=== PATIENT | female | born 1960 | race Caucasian/White ===

== ENCOUNTER 2024-05-26 01:34 | Inpatient (IN) | payer SELFPAY ==
[2024-05-26] VITALS (30 sets, daily range): BP systolic 96–185; BP diastolic 60–107; PULSE 44–77; RESP 10–21; TEMP 36.6–37; O2SAT 84–99; BMI 32.6; BMI 38.3
--- NOTE | 2024-05-26 01:27 | ECG_ITS ---
APPROVED REPORT Exam: Resting ECG HR:54 bpm ECG Measurements Heart Rate 54 AXES WV 160 P 71 QRSd 131 QRS 148 QT 477 T 37 QTc 462 Conclusion SINUS BRADYCARDIA RIGHT AXIS DEVIATION [QRS AXIS > 100] RIGHT BUNDLE BRANCH BLOCK [120+ ms QRS DURATION, UPRIGHT V1, 40+ ms S IN I/aVL/V4/V5/V6] ANTEROSEPTAL MYOCARDIAL INFARCTION , OF INDETERMINATE AGE [40+ ms Q WAVE IN V1-V4] ABNORMAL ECG Low voltage ECG No STEMI Electronically signed by : RANDALL MORRELL, 05/26/2024 06:51:02
--- NOTE | 2024-05-26 01:32 | XR_ITS ---
PROCEDURE INFORMATION: Exam: XR Chest Exam date and time: 05/26/2024 2:16 AM Age: 63 years old Clinical indication: Pain; Chest pressure; Additional info: Cp TECHNIQUE: Imaging protocol: Radiologic exam of the chest. Views: 2 views. COMPARISON: No relevant prior studies available. FINDINGS: Lungs: Confluent and focal areas of airspace opacities in the lung bases with LEFT lower lobe atelectasis. Pleural spaces: Small bilateral pleural effusions. Heart/Mediastinum: Massive cardiomegaly. Bones/joints: Scoliosis and mild degenerative changes in the spine. IMPRESSION: 1. Massive cardiomegaly suggestive of pericardial effusion versus dilated cardiomyopathy. 2. Small bilateral pleural effusion with atelectasis and consolidation in the adjacent lung.
[2024-05-26] MEDS: NITROGLYCERIN 0.4MG SL TABLET 0.4 MG SL (01:43)
[2024-05-26 01:46] LABS: Eosinophils # 0.1 K/mm3 (0.0-0.4); Eosinophils % 2.2 % (0.1-12.0); Hematocrit 36.6 % (37.0-47.0); Hemoglobin 11.8 g/dL (12.2-16.2); Lymphocytes % 24.3 % (10-50); Mean Corpuscular HGB Conc 32.2 g/dL (31.8-35.4); Mean Corpuscular Hemoglobin 32.1 pg (27.0-31.2); Mean Corpuscular Volume 99.5 fl (81-99); Mean Platelet Volume 11.6 fl (7.4-10.4); Monocytes # 0.2 K/mm3 (0.1-1.0); Monocytes % 4.7 % (1.7-9.3); Neutrophils # 2.7 K/mm3 (1.8-7.8); Neutrophils % 67.6 % (37.0-80.0); Platelet Count 162 K/mm3 (142-424); Red Blood Count 3.68 M/mm3 (4.20-5.40); Red Cell Distribution Width 13.2 % (11.5-17.5)
[2024-05-26 01:46] LABS: Lactate Venous 1.2 mmol/L (0.4-2.0); VBG Base Excess 5.6 mmol/L (-2.4-2.3); VBG HCO3 30.1 mmol/L (23-30); VBG PCO2 47.3 mmol/L (35-51); VBG PH 7.42 mmol/L (7.31-7.41); VBG PO2 151.9 mmol/L (28-40); VBG Total CO2 31.5 mmol/L (23-27)
[2024-05-26 01:51] LABS: Chloride 96 mmol/L (98-107)
[2024-05-26 01:52] LABS: Potassium 3.8 mmoL/L (3.5-5.1); Sodium 137 mmol/L (136-145)
[2024-05-26 01:55] LABS: Alanine Aminotransferase 20 U/L (12-78); Albumin/Globulin Ratio 1.6 (1.1-1.8); Alkaline Phosphatase 44 U/L (38-126); Anion Gap 5.8 mEq/L (5-15); Aspartate Amino Transferase 43 U/L (14-36); Bilirubin,Total 0.5 mg/dl (0.2-1.3); Calcium 9.3 mg/dl (8.4-10.2); Carbon Dioxide 39 mmol/L (22.0-30.0); Globulin 3.2 g/dL (1.3-3.2); Glucose 141 mg/dl (74-100); Total Protein,Serum 8.2 g/dl (6.3-8.2)
[2024-05-26 01:57] LABS: Prothrombin Time 11.2 seconds (10.1-12.5)
[2024-05-26 02:04] LABS: NT Pro Brain Natriuretic Pep. 79.6 pg/mL (0-125)
[2024-05-26 02:07] LABS: Troponin I 0.02 ng/ml (0.00-0.034)
[2024-05-26 02:10] LABS: D-Dimer 0.61 ug/mL (0.0-0.5)
--- NOTE | 2024-05-26 02:21 | CT_ITS ---
PROCEDURE INFORMATION: Exam: CTA Chest With Contrast Exam date and time: 05/26/2024 2:37 AM Age: 63 years old Clinical indication: Pain; Chest pressure; Additional info: Cp hypoxia dimer elevated TECHNIQUE: Imaging protocol: Computed tomographic angiography of the chest with contrast. Exam focused on the arteries. 3D rendering (Not supervised by radiologist): MIP and/or 3D reconstructed images were created by the technologist. Radiation optimization: All CT scans at this facility use at least one of these dose optimization techniques: automated exposure control; mA and/or kV adjustment per patient size (includes targeted exams where dose is matched to clinical indication); or iterative reconstruction. Contrast material: ISOVUE; Contrast volume: 70 ml; Contrast route: INTRAVENOUS (IV); COMPARISON: CR XR CHEST 2V 05/26/2024 2:16 AM FINDINGS: Pulmonary arteries: Suboptimal study with likely streak artifact/artifactual filling defects in the distal pulmonary arteries due to patient's body habitus, artifact from patient's arms being in the scanning field and respiratory/cardiac motion. The main, right, and left pulmonary arteries and their visualized central branches show normal enhancement. Aorta: No thoracic aortic aneurysm or dissection. Lungs: See Pleural spaces finding. Pleural spaces: Small to moderate bilateral pleural effusion with adjacent compressive atelectasis. Dependent atelectasis in the lung bases, groundglass opacities, scarring and peribronchial thickening with marked narrowing of the distal airways. Also noted are a few scattered patchy airspace opacities. Heart: Normal heart size with massive pericardial effusion having attenuation of approximately 27 Hounsfield units and measuring approximately 6.3 cm at the level of the LEFT ventricle. Lymph nodes: No bulky mediastinal or hilar lymph node enlargement. Soft tissues: Mild wall thickening of the thoracic esophagus suggestive of esophagitis/reflux. Nonspecific LEFT perinephric fat stranding and trace fluid and small amount of perisplenic ascites. IMPRESSION: 1. Suboptimal study without evidence of acute central pulmonary thromboembolism. 2. Massive pericardial effusion and cardiac tamponade. 3. Findings also suspicious for CHF, pulmonary edema and pleural effusion. 4. A few scattered patchy airspace opacities suspicious for pneumonia. COMMENT: Suboptimal study due to extensive streak artifact from patient's arms within the scanning field and due to motion artifact. THIS REPORT CONTAINS FINDINGS THAT MAY BE CRITICAL TO PATIENT CARE. The findings were acknowledged to be understood at 5:08 AM EDT on 05/26/2024, by Kermit Oconnor
[2024-05-26 02:24] LABS: Blood Urea Nitrogen 13 mg/dl (7-17); Creatinine Clearance Estimated 91 mL/min (50-200); Estimated Glomerular Filt Rate 73 ml/min (>60); GFR (African American) 88 ML/MIN (>60)
--- NOTE | 2024-05-26 02:25 | PC.NURSE ---
Pt to CT via wheelchair
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
[2024-05-26] MEDS: 0.9 % SODIUM CHLORIDE 50 ML VIAL IV (02:47)
[2024-05-26] MEDS: IOPAMIDOL-370 (76%);100ML BOTTLE 70 ML IV (02:47)
[2024-05-26] MEDS: SODIUM CHLORIDE 0.9% 10ML SYR (RAD ONLY) 10 ML IV (02:47)
[2024-05-26 03:10] LABS: HIV Combo NEGATIVE (Negative)
[2024-05-26 03:18] LABS: Hepatitis C Ab Qual. W/ RFX NEGATIVE (Negative)
[2024-05-26 03:25] LABS: Activated Partial Thrombo Time 32.2 seconds (22.8-30.6)
--- NOTE | 2024-05-26 03:37 | PC.NURSE ---
report called to Kinga Alvarez RN
[2024-05-26 03:49] LABS: Free T4 (Free Thyroxine) < 0.07 ng/dl (0.78-2.19)
--- NOTE | 2024-05-26 04:16 | PC.NURSE ---
Patient arrived to ICU unit via wheelchair @04:16
--- NOTE | 2024-05-26 04:19 | P.HP_ITS ---
<Statement entered by Shaq Baker MD - 06/02/24 11:03> I personally examined patient and agree with the plan of care outlined by the HEALTH AND SAFETY TRAINER. History of Present Illness *Admission Date: 05/26/24 *Reason for visit:: Chest pain *History of present illness: This is a 63-year-old female who does not have any significant past medical history who presents with a chief complaint of chest pain and radiates to her jaw. It was, she presented to while in the emergency room, patient was noted to be 87% on room air. CTA of the chest showed a significant pericardial effusion leading to tamponade and patient was hypertensive. Due to these findings, patient's case was discussed with tapper balance wheel screw hole who recommended admission for potential pericardiocentesis. Due to these recommendations, patient has been admitted for further management. 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 She voices having no significant history and has not seen a doctor in over 10 years. Patient states that she was watching television when she started to experiencing a forementioned symptomology. Patient is normally independent of any supplemental oxygen and she does have a prior smoking history of 1 pack daily but she quit 10 years ago. Patient states she has been having swelling of the eyes. Patient voices she did receive 2 doses of the Moderna and post inoculation, patient states she started to lose her hair. She is currently denying any lightheadedness, dizziness, fever, chills, PND, nausea, vomiting, dyspnea, or diarrhea. Additional pertinent labs obtained including white blood cell count 4, red blood cell count 3.68, hemoglobin 11.8, hematocrit 36.6, D- dimer 0.61, PTT of 32.2, pH of 7.42, pCO2 of 31.5, bicarb of 30.1, chloride of 96, carbon oxide of 39, blood glucose 141, TSH is 69.80, and free T4 is less than 0.07, and AST of 43. [facility] Disclaimer: The information contained in this section may have been updated after the patient was seen, as this information can be updated by other users. Social History (Updated 05/26/24 @ 03:31 by Kermit Oconnor MD) Smoking Status: Unknown if ever smoked alcohol intake: never current occupational status: other Travel in the last 8 weeks: None Review of Systems Review of Systems Review of systems:: pertinent systems reviewed and negative unless documented below Constitutional Constitutional: Reports lethargy Eyes Comments: Swelling around the eyes ENT Comments: Thinning of the hair *Cardiovascular Cardiovascular: Reports chest pain and Reports dyspnea *Respiratory Respiratory: Reports dyspnea *Gastrointestinal Gastrointestinal: Reports system reviewed and no additional complaints, except as documented *Genitourinary Genitourinary: Reports system reviewed and no additional complaints, except as documented *Musculoskeletal Musculoskeletal: Reports system reviewed and no additional complaints, except as documented Integumentary/Breasts Skin/Breast: Reports system reviewed and no additional complaints, except as documented *Neurologic Neurologic: Reports system reviewed and no additional complaints, except as documented Psychiatric Psychiatric: Reports system reviewed and no additional complaints, except as documented Endocrine Endocrine: Reports system reviewed and no additional complaints, except as documented Hematologic/Lymphatic Hematologic/Lymphatic: Reports system reviewed and no additional complaints, except as documented Allergic/Immunologic Allergic/Immunologic: Reports system reviewed and no additional complaints, except as documented Meds Home Medications and Allergies Home Medications ?Medication ?Instructions ?Recorded ?Confirmed ?Type ascorbic acid (vitamin C) 500 mg 500 mg PO DAILY 05/26/24 05/26/24 History tablet (Vitamin C) cholecalciferol (vitamin D3) 10 10 mcg PO DAILY 05/26/24 05/26/24 History mcg (400 unit) tablet (Vitamin D3) cyanocobalamin-liver extract tablet 1 tab PO DAILY 05/26/24 05/26/24 History omega-3 fatty acids 1,000 mg PO DAILY 05/26/24 05/26/24 History New Prescriptions to Start Prescriptions: Allergies Allergy/AdvReac Type Severity Reaction Status Date / Time Penicillins Allergy Unknown Verified 05/26/24 01:43 allergy reaction tetanus and diphtheria Allergy Unknown Verified 05/26/24 01:43 toxoids allergy reaction Exam Data for Last 24 hours Vital signs and Labs for Last 24 Hours: Temp Pulse Resp BP Pulse Ox O2 Del Method O2 Flow Rate 98.0 F 50 L 17 166/90 H 99 Nasal Cannula 2 05/26/24 03:41 05/26/24 03:41 05/26/24 03:41 05/26/24 03:41 05/26/24 03:30 05/26/24 03:41 05/26/24 03:41 Laboratory Results - last 24 hr 05/26/24 01:32: VBG pH 7.42 H, VBG pCO2 47.3, VBG pO2 151.9 H, VBG HCO3 30.1 H, VBG Total CO2 31.5 H, VBG O2 Saturation 99.0 H, VBG Base Excess 5.6 H, VBG Lactic Acid 1.2 05/26/24 01:40: WBC 4.0 L, RBC 3.68 L, Hgb 11.8 L, Hct 36.6 L, MCV 99.5 H, MCH 32.1 H, MCHC 32.2, RDW 13.2, Plt Count 162, MPV 11.6 H, Neut % (Auto) 67.6, Lymph % (Auto) 24.3, [place] % (Auto) 4.7, Eos % (Auto) 2.2, Baso % (Auto) 1.0, Neut # (Auto) 2.7, Lymph # (Auto) 1.0, [place] # (Auto) 0.2, Eos # (Auto) 0.1, Baso # (Auto) 0.0, PT 11.2, INR 1.00, APTT 32.2 H, D-Dimer 0.61 H, Sodium 137, Potassium 3.8, Chloride 96 L, Carbon Dioxide 39 H, Anion Gap 5.8, BUN 13, Creatinine 0.80, Estimated Creat Clear 91, Estimated GFR 73, Est GFR ( Amer) 88, Glucose 141 H, Calcium 9.3, Total Bilirubin 0.5, AST 43 H, ALT 20, Alkaline Phosphatase 44, Troponin I 0.02, NT-Pro-B Natriuret Pep 79.6, Total Protein 8.2, Albumin 5.0, Globulin 3.2, Albumin/Globulin Ratio 1.6, TSH 69.80 H, Free T4 < 0.07 L, HCV Ab MELVIN w/Rflx PCR Qn Negative, HIV Ag/Ab Combo Qual Negative I & O for Last 24 hours: Intake & Output 05/23/24 05/24/24 05/25/24 05/26/24 23:59 23:59 23:59 23:59 Weight 97.522 kg Constitutional Constitutional: no acute distress and cooperative *Routine HEENT Exam Head: Present normocephalic Eye: Present EOMI, PERRL and periorbital swelling ENT: Present mucous membranes moist Comments: Hair thinning *Routine Neck Exam Neck: Present supple, full ROM and trachea midline *Routine Respiratory Exam Respiratory: Present decreased breath sounds and CTA bilaterally *Routine Cardiovascular Exam Cardiovascular: Present bradycardia Comments: Distant *Routine Abdominal Exam Abdominal: Present soft and normoactive bowel sounds *Routine Rectal Exam Rectal:: deferred *Routine Genitalia Exam Genitalia:: deferred *Routine Extremities Exam Extremities: Present pulses intact and normal capillary refill Routine Back/Spine/Pelvis Exam Back/Spine: Present full ROM *Routine Skin Exam Skin: Present dry and warm Comments: Thin *Routine Neurological Exam Neurological: Present alert, oriented X3, CN II-XII intact and normal speech Routine Psychiatric Exam Psychiatric: Present normal affect, normal thought process, cooperative, good insight and good judgment H&P: Result Impressions This is a 63-year-old has not seen a provider in over 10 years who presents with chest pain that radiates to her jaw found to have a significant pericardial effusion. TSH and T4 are both abnormal with concerns for myxedema patient has thin skin, periorbital edema, decreased exercise intolerance, and hair loss Assessment and Plan *Assessment and plan (1) Pericardial effusion: Status: Acute Category: Medical Code(s): I31.39 - Other pericardial effusion (noninflammatory) (2) Cardiac tamponade: Status: Acute Category: Medical Code(s): I31.4 - Cardiac tamponade (3) Hypoxia: Status: Acute Category: Medical Code(s): R09.02 - Hypoxemia (4) Hypothyroid: Status: Acute Qualifiers: Hypothyroidism type: unspecified Qualified Code(s): E03.9 - Hypothyroidism, unspecified Category: Medical Code(s): E03.9 - Hypothyroidism, unspecified (5) Hypertensive emergency: Status: Acute Category: Medical Code(s): I16.1 - Hypertensive emergency (6) Hyperglycemia: Status: Acute Category: Medical Code(s): R73.9 - Hyperglycemia, unspecified (7) Sinus bradycardia: Status: Acute Category: Medical Code(s): R00.1 - Bradycardia, unspecified (8) Chest pain: Status: Acute Qualifiers: Chest pain type: unspecified Qualified Code(s): R07.9 - Chest pain, unspecified Category: Medical Code(s): R07.9 - Chest pain, unspecified Plan Assessment: Pericardial effusion/cardiac tamponade -Put pericardial tray at the bedside per library helper recommendation -Will hope to culture fluid -Suspect that thyroid dysfunction may be the cause of patient's pericardial effusion -However, will rule out any autoimmune disorders we will obtain PETAR with reflex panel, lupus, and rheumatoid factor -echo Acute hypoxic respiratory failure -Supplemental oxygen to maintain oxygen saturation greater 94% Severe new onset hypothyroidism -Patient does have periorbital edema, thinning of skin, decreased activity, and loss of hair -Concern for myxedema -Called and spoke with pharmacy concerning dosing of levothyroxine IV -Recommended 50 mcg of levothyroxine IV daily -Will trend TSH, T4, and free T3 Hypertensive urgency -Will leave blood pressure high per library helper recommendation -Severe drop in blood pressure may lead to rapid deterioration of patient Hyperglycemia -No prior history of diabetes -Will obtain hemoglobin A1c Sinus bradycardia -Patient has stable blood pressure -Most likely in the setting of pericardial effusion Plan: Admit patient to the intensive care unit on telemetry Activity as tolerated Supplemental oxygen to maintain oxygen saturation greater than 92% Saline lock Vital signs every hour Consult cardiology Keep patient n.p.o. until evaluated by library helper CBC/BMP daily Lipid panel in a.m. Will trend troponins 40 mg Lovenox subcu daily for DVT prophylax 5 mg of hydrocodone p.o. every 6 hours as needed moderate pain 2 mg morphine IV push every 2 hours as needed severe pain 4 mg Zofran IV push every 6 hours as needed nausea vomiting Full code Discussed this case with attending physician Dr. Baker and I look forward to more input
--- NOTE | 2024-05-26 06:15 | CA_ITS ---
APPROVED REPORT EXAM: Comprehensive 2D, Doppler, and color-flow Echocardiogram Rn Compliance: Nolvia West, [facility], RVS Ht: 5 ft 7 in Wt: 253lbs BSA: 2.24 BP: 166/90 mmHg Rhythm: Bradycardia Indications: CP,Pericardial effusion, SOA, Acute Hypothyroidism, Bradycardia, Hgb=11.8 2D Dimensions IVSd 1.22 cm F: 0.6-1.0 LVEF (Visual) 62.70 % PWd 1.20 cm F: 0.6 - 1.0 EF AP4 52.30 % LVDd 3.82 cm F: 3.9 - 5.3 GL Strain -20.9 % LVDs 2.55 cm F: 2.2 - 3.5 Left Atrium 3.82 cm F: 2.7 - 3.8 M-Mode Dimensions LA Diam 4.31 cm (1.9-4.0) EPSs 0.46 cm TAPSE 1.49 (<1.7) LV Diastology E Decel Time 297 (160-240 msec) E/A Ratio 1.78 MED A' 6.20 cm/s LAT A' 7.60 cm/s Aortic Valve ABDIRIZAK Index 1.03 cm2/m2 AoV Peak Dago. 103.0 (50-130 cm/s) AO Peak GR. 4.20 mmHg AO Mean GR. 2.10 (<5 mmHg) AO VTI 20.9 (18-25 cm) ABDIRIZAK (VTI) 2.37 (2.5-4.5 cm2) Mitral Valve MV A Velocity 29.0 (40-130 cm/s) E/A Ratio 1.78 Left Ventricle The left ventricle is normal size. The left ventricular systolic function is normal. The left ventricular ejection fraction is within the normal range. There is increased LV wall thickness. There is normal LV segmental wall motion. Diastolic function is indeterminate. LVEF is 55% Right Ventricle The right ventricle is normal size. The right ventricular systolic function is normal. Atria Left atrium is mildly dilated. The right atrium size is normal. There is no Doppler evidence of interatrial shunt. Aortic Valve The aortic valve is mildly thickened. There is no aortic valvular stenosis. No aortic regurgitation is present. Mitral Valve The mitral valve leaflets are mildly thickened. No evidence of mitral valve stenosis. Trace mitral regurgitation. Tricuspid Valve Tricuspid valve is grossly normal in structure and function. Trace tricuspid regurgitation. There is insufficient TR jet to estimate RVSP. Pulmonic Valve The pulmonary valve is normal in structure. Trace pulmonic regurgitation. Great Vessels The aortic root is normal in size. IVC is normal in size and collapses >50% with inspiration. Pericardium There is a large sized, circumferential pericardial effusion present. The largest pocket measures 45 mm in diameter and is located posteriorly. No clear echo indications of tamponade. Other Information Study Quality: Fair Conclusion Normal biventricular systolic function. No significant valvular stenosis or regurgitation. Large sized, circumferential pericardial effusion present. The largest pocket measures 45 mm in diameter and is located posteriorly. No clear echo indications of tamponade. In the setting of large circumferential pericardial effusion, clinical correlation is required. Serial TTE is suggested. Electronically signed by : Danelle Ruiz MD 05/27/2024 12:59:38
[2024-05-26 06:32] LABS: Basophils % 0.9 % (0.1-2.0); Eosinophils # 0.1 K/mm3 (0.0-0.4); Eosinophils % 1.9 % (0.1-12.0); Hemoglobin 12.1 g/dL (12.2-16.2); Lymphocytes # 0.8 K/mm3 (0.7-4.5); Lymphocytes % 24.8 % (10-50); Mean Corpuscular HGB Conc 31.8 g/dL (31.8-35.4); Mean Corpuscular Hemoglobin 32.3 pg (27.0-31.2); Mean Corpuscular Volume 101.3 fl (81-99); Mean Platelet Volume 11.5 fl (7.4-10.4); Monocytes # 0.2 K/mm3 (0.1-1.0); Neutrophils # 2.1 K/mm3 (1.8-7.8); Neutrophils % 67.1 % (37.0-80.0); Platelet Count 169 K/mm3 (142-424); Red Blood Count 3.75 M/mm3 (4.20-5.40); Red Cell Distribution Width 13.2 % (11.5-17.5); White Blood Count 3.2 K/mm3 (4.8-10.8)
[2024-05-26 06:34] LABS: Blood Urea Nitrogen 11 mg/dl (7-17); Calcium 9.5 mg/dl (8.4-10.2); Chloride 95 mmol/L (98-107); Chol/HDL Ratio 5.4 (1-3.5); Cholesterol 295 mg/dl (140-200); Creatinine Clearance Estimated 107 mL/min (50-200); Estimated Glomerular Filt Rate 64 ml/min (>60); GFR (African American) 77 ML/MIN (>60); Glucose 112 mg/dl (74-100); HDL Cholesterol 55 mg/dl (40-60); Potassium 3.7 mmoL/L (3.5-5.1); Sodium 140 mmol/L (136-145); Triglycerides 179 mg/dl (30-150); VLDL Cholesterol 36 mg/dL (0-40)
[2024-05-26 06:41] LABS: Anion Gap 16.7 mEq/L (5-15); Carbon Dioxide 32 mmol/L (22.0-30.0)
[2024-05-26 06:44] LABS: Direct LDL Cholesterol 161.04 mg/dL (100-129)
[2024-05-26 06:47] LABS: Troponin I 0.49 ng/ml (0.00-0.034)
[2024-05-26 07:07] LABS: Free T4 (Free Thyroxine) < 0.07 ng/dl (0.78-2.19)
--- NOTE | 2024-05-26 07:48 | ECG_ITS ---
APPROVED REPORT Exam: Resting ECG HR:47 bpm ECG Measurements Heart Rate 47 AXES WI 181 P 67 QRSd 76 QRS 49 QT 184 T 0 QTc 145 Conclusion SINUS BRADYCARDIA LOW QRS VOLTAGE [QRS DEFLECTION < 0.5/1.0 mV IN LIMB/CHEST LEADS] ANTEROSEPTAL MYOCARDIAL INFARCTION , PROBABLY OLD [40+ ms Q WAVE IN V1-V4] TYPE 3 BRUGADA PATTERN (NON-DIAGNOSTIC) [COVED/SADDLEBACK ST ELEVATION > 0.1mV IN 2 OF V1-3] ABNORMAL ECG UNCONFIRMED REPORT Electronically signed by : Shaan Muse MD 05/26/2024 08:30:21
[2024-05-26 07:59] LABS: Magnesium 2.5 mg/dl (1.6-2.3)
--- NOTE | 2024-05-26 08:31 | PC.NURSE ---
per cardiology, do not start heparin drip
[2024-05-26 08:32] LABS: Anti-Centromere B Antibodies ND; Anti-DNA (DS) Ab Qn ND; Anti-Jo-1 ND; Antichromatin Antibodies ND; Antiscleroderma-70 Antibodies ND; RNP Antibodies ND; Sjogren's Anti-SS-A ND; Sjogren's Anti-SS-B ND
[2024-05-26 08:32] LABS: Adenovirus,PCR Not Detected (NotDetected); Bordetella Pertussis Not Detected (NotDetected); Chlamydophila Pneumoniae, PCR Not Detected (NotDetected); Coronavirus 19, PCR Not Detected (NotDetected); Coronavirus 229E Not Detected (NotDetected); Coronavirus NL63 Not Detected (NotDetected); Coronavirus OC43 Not Detected (NotDetected); Coronovirus HKU1,PCR Not Detected (NotDetected); Human Metapneumovirus Not Detected (NotDetected); Influenza A, PCR Not Detected (NotDetected); Influenza AH1, 2009 Not Detected (NotDetected); Influenza AH1, PCR Not Detected (NotDetected); Influenza AH3,PCR Not Detected (NotDetected); Influenza B, PCR Not Detected (NotDetected); Mycoplasma Pneumoniae, PCR Not Detected (NotDetected); Parainfluenza 1, PCR Not Detected (NotDetected); Parainfluenza 2, PCR Not Detected (NotDetected); Parainfluenza 3, PCR Not Detected (NotDetected); Parainfluenza 4, PCR Not Detected (NotDetected); Respiratory Syncytial Virus Not Detected (NotDetected); Rhinovirus/Enterovirus Not Detected (NotDetected)
[2024-05-26] MEDS: ASPIRIN 325MG TABLET 325 MG PO (08:44)
[2024-05-26] MEDS: LEVOTHYROXINE SODIUM 100 MCG VIAL 50 MCG IV (08:45)
[2024-05-26 08:49] LABS: PTT Heparin (inpatient only) 33.2 Seconds (50-75)
[2024-05-26 09:01] LABS: Erythrocyte Sedimentation Rate 20 mm/hr (0-30)
[2024-05-26 09:17] LABS: Troponin I 1.34 ng/ml (0.00-0.034)
--- NOTE | 2024-05-26 09:24 | P.CONCA_ITS ---
History of Present Illness History of Present Illness Consult date: 05/26/24 Requesting physician: Shaq Baker Consult reason: chest pain and shortness of breath Chief complaint: SOA, edema, chest pain Additional Medical History:: 1. Myxedema, 05/2024 A. TSH 69 B. Pericardial effusion, large without tamponade 2. Obesity History of present illness: 63 yo WF admitted through the ER for large pericardial effusion without cardiac tamponade. Pt relates recent increase in SOA with associated CP as the reason for ER visit. She hasn't seen a medical provider in 10 yrs. She takes no medication. Former smoker, stopped about 10 yrs ago. 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 No prior history of thyroid issues but TSH this admission elevated at 69. In light of edema and bradycardia, she likely has myxedema. She has been started on IV levothyroxine. Cardiology consulted for large pericardial effusion and possible need for pericardiocentesis. She is clinically stable with elevated BP at this time. HR is in the 50's. [facility] Disclaimer: The information contained in this section may have been updated after the patient was seen, as this information can be updated by other users. Family History (Updated 05/26/24 @ 05:21 by Alejandra Alvarez RN) Grandmother Family history of myocardial infarction Father Dementia Mother Diabetes Breast cancer Social History (Updated 05/26/24 @ 06:09 by Alejandra Alvarez RN) Smoking Status: Unknown if ever smoked alcohol intake: never current occupational status: other Travel in the last 8 weeks: None household members: spouse housing: house marital status: number of children: 1 number of grandchildren: 2 Contact w/someone who lives/traveled outside [place] past 30 days?: No Exposure to someone with infectious disease in past 14 days?: No Do you have a fever (greater than 100.4 F or 38 C)?: No Have you tested positive for COVID-19: No Exposed to someone with COVID-19 in past 14 days?: No Do you have a sore throat?: No Do you have a cough?: No Do you have any weakness?: No Are you experiencing any nausea/vomitting?: No Do you have any diarrhea?: No Are you experiencing any unusual bleeding?: No Do you have any muscle aches/pain?: No Do you have any abdominal pain?: No Are you experiencing loss of taste or smell?: No Review of Systems Review of Systems Review of systems:: pertinent systems reviewed and negative unless documented below *Cardiovascular Cardiovascular: Reports chest pain and Reports dyspnea *Respiratory Respiratory: Reports dyspnea *Neurologic Neurologic: Reports system reviewed and no additional complaints, except as documented Exam Data for Last 24 hours Vital signs and Labs for Last 24 Hours: Temp Pulse Resp BP Pulse Ox O2 Del Method O2 Flow Rate 98.6 F 53 L 12 174/91 H 95 Nasal Cannula 2 05/26/24 08:00 05/26/24 09:00 05/26/24 09:00 05/26/24 09:01 05/26/24 09:00 05/26/24 09:00 05/26/24 09:00 Laboratory Results - last 24 hr 05/26/24 01:32: VBG pH 7.42 H, VBG pCO2 47.3, VBG pO2 151.9 H, VBG HCO3 30.1 H, VBG Total CO2 31.5 H, VBG O2 Saturation 99.0 H, VBG Base Excess 5.6 H, VBG Lactic Acid 1.2 05/26/24 01:40: WBC 4.0 L, RBC 3.68 L, Hgb 11.8 L, Hct 36.6 L, MCV 99.5 H, MCH 32.1 H, MCHC 32.2, RDW 13.2, Plt Count 162, MPV 11.6 H, Neut % (Auto) 67.6, Lymph % (Auto) 24.3, [place] % (Auto) 4.7, Eos % (Auto) 2.2, Baso % (Auto) 1.0, Neut # (Auto) 2.7, Lymph # (Auto) 1.0, [place] # (Auto) 0.2, Eos # (Auto) 0.1, Baso # (Auto) 0.0, PT 11.2, INR 1.00, APTT 32.2 H, D-Dimer 0.61 H, Sodium 137, Potassium 3.8, Chloride 96 L, Carbon Dioxide 39 H, Anion Gap 5.8, BUN 13, Creatinine 0.80, Estimated Creat Clear 91, Estimated GFR 73, Est GFR ( Amer) 88, Glucose 141 H, Calcium 9.3, Total Bilirubin 0.5, AST 43 H, ALT 20, Alkaline Phosphatase 44, Troponin I 0.02, NT-Pro-B Natriuret Pep 79.6, Total Protein 8.2, Albumin 5.0, Globulin 3.2, Albumin/Globulin Ratio 1.6, TSH 69.80 H, Free T4 < 0.07 L, HCV Ab MELVIN w/Rflx PCR Qn Negative, HIV Ag/Ab Combo Qual Negative 05/26/24 05:41: WBC 3.2 L, RBC 3.75 L, Hgb 12.1 L, Hct 38.0, MCV 101.3 H, MCH 32 .3 H, MCHC 31.8, RDW 13.2, Plt Count 169, MPV 11.5 H, Neut % (Auto) 67.1, Lymph % (Auto) 24.8, [place] % (Auto) 5.0, Eos % (Auto) 1.9, Baso % (Auto) 0.9, Neut # (Auto) 2.1, Lymph # (Auto) 0.8, [place] # (Auto) 0.2, Eos # (Auto) 0.1, Baso # (Auto) 0.0, Sodium 140, Potassium 3.7, Chloride 95 L, Carbon Dioxide 32 H, Anion Gap 16.7 H, BUN 11, Creatinine 0.90, Estimated Creat Clear 107, Estimated GFR 64, Est GFR ( Amer) 77, Glucose 112 H D, Calcium 9.5, Magnesium 2.5 H, Troponin I 0.49 H, Triglycerides 179 H, Cholesterol 295 H, LDL Cholesterol Direct 161.04 H, VLDL Cholesterol 36, HDL Cholesterol 55, Cholesterol/HDL Ratio 5.4 H, TSH 57.10 H, Free T4 < 0.07 L 05/26/24 08:20: ESR 20, APTT 33.2 L, Troponin I 1.34 H I & O for Last 24 hours: Intake & Output 05/23/24 05/24/24 05/25/24 05/26/24 11:59 11:59 11:59 11:59 Output Total 700 / 700 Balance -700 / -700 Weight 253 lb 3.2 oz Constitutional Constitutional: no acute distress *Routine Respiratory Exam Respiratory: Present decreased breath sounds; Absent rhonchi or wheezes *Routine Cardiovascular Exam Cardiovascular: Present RRR and bradycardia Comments: Heart sounds are distant. *Routine Extremities Exam Extremities: Present edema *Routine Neurological Exam Neurological: Present alert, oriented X3 and CN II-XII intact Meds Home Medications and Allergies Home Medications ?Medication ?Instructions ?Recorded ?Confirmed ?Type ascorbic acid (vitamin C) 500 mg 500 mg PO DAILY 05/26/24 05/26/24 History tablet (Vitamin C) cholecalciferol (vitamin D3) 10 10 mcg PO DAILY 05/26/24 05/26/24 History mcg (400 unit) tablet (Vitamin D3) New Prescriptions to Start Prescriptions: Allergies Allergy/AdvReac Type Severity Reaction Status Date / Time Penicillins Allergy Unknown Verified 05/26/24 01:43 allergy reaction tetanus and diphtheria Allergy Unknown Verified 05/26/24 01:43 toxoids allergy reaction Assessment and Plan *Assessment and plan (1) Pericardial effusion: Status: Acute Category: Medical Code(s): I31.39 - Other pericardial effusion (noninflammatory) (2) Myxedema: Status: Acute Category: Medical Code(s): E03.9 - Hypothyroidism, unspecified (3) Obesity: Status: Acute Qualifiers: Body mass index: BMI 38.0-38.9 Obesity classification: adult class 2 (BMI 35 - 39.9) Obesity type: due to excess calories Serious obesity comorbidity presence: unspecified whether serious comorbidity present Qualified Code(s): E66.812 - Obesity, class 2; E66.09 - Other obesity due to excess calories; Z68.38 - Body mass index [BMI] 38.0-38.9, adult Category: Medical Code(s): E66.9 - Obesity, unspecified (4) Ex-smoker for more than 1 year: Status: Acute Category: Social Hx Code(s): Z87.891 - Personal history of nicotine dependence (5) HTN (hypertension): Status: Acute Qualifiers: Hypertension type: unspecified Qualified Code(s): I10 - Essential (primary) hypertension Category: Medical Code(s): I10 - Essential (primary) hypertension (6) Hypoxia: Status: Acute Category: Medical Code(s): R09.02 - Hypoxemia Plan 1. Pericardial effusion, large -no evidence of urgent findings on echo to necessitate pericardiocentesis at this time -likely related to myxedema -follow with limited echo daily while in hospital -colchicine for possible pericarditis 2. Myxedema -IV levothyroxine started 3. Hypertension -continue to follow with recent start of levothyroxine 4. Hypoxia -oxygen as needed 5. Hyperlipidemia -LDL 161 -start statin 6. Elevated troponin -likely related to effusion or possible pericarditis 7. Abnormal EKG -check echo -monitor as pericardial effusion resolves -concern for old VT and possible type 3 Brugada syndrome Start colchicine and statin daily echo to monitor pericardial effusion
[2024-05-26 09:52] LABS: C-Reactive Protein 4.8 mg/L (0-4)
[2024-05-26 10:08] LABS: Hemoglobin A1C 6.2 % (4.0-6.0)
[2024-05-26] MEDS: COLCHICINE 0.6MG TABLET 1.2 MG PO (14:41)
[2024-05-26 14:52] LABS: Troponin I 1.47 ng/ml (0.00-0.034)
--- NOTE | 2024-05-26 16:44 | PC.NURSE ---
VS stable, patient weaned to 1LNC but requiring 2LNC while sleeping. Patient alert and oriented. Heart rate 40-50's.
[2024-05-26] MEDS: ATORVASTATIN 40MG TABLET 80 MG PO (20:11)
[2024-05-27] VITALS (36 sets, daily range): BP systolic 116–166; BP diastolic 60–87; PULSE 44–70; RESP 9–20; TEMP 36.4–37.1; O2SAT 88–98; BMI 38.1
--- NOTE | 2024-05-27 00:04 | PC.NURSE ---
Pt dropped to 84% while asleep on 2 L nc. Pt titrated up to 4 L nc.
--- NOTE | 2024-05-27 06:00 | CA_ITS ---
APPROVED REPORT EXAM: Comprehensive 2D, Doppler, and color-flow Echocardiogram Appliance Worker: ORTEGA Carter, RVS Ht: 5 ft 7 in Wt: 253lbs BSA: 2.24 BP: 174/91 mmHg Rhythm: Bradycardia Indications: Persistant pericardial effusion , HTN, Ex-smoker, Acute hypothyroidism Other Information Study Quality: Fair Conclusion This is a limited TTE to evaluate for pericardial effusion. Limited windows were obtained. There is a large sized, circumferential pericardial effusion present. The largest pocket measures 53 mm in its largest dimension. There is no evidence of diastolic RV collapse. However, the RA free wall partially invaginates inward during systole. The IVC is normal in size and collapsibility. Compared to study from 1 day prior on 05/26/2024, the effusion size appears slightly larger. The RA invagination is new. Clinical correlation is suggested, with early consideration for pericardiocentesis if clinically feasible. The above findings were communicated with the inpatient cardiology consult team in real-time at the time of image acquisition. Electronically signed by : Danelle Ruiz MD 05/27/2024 13:02:32
[2024-05-27 06:09] LABS: Basophils % 0.9 % (0.1-2.0); Eosinophils # 0.1 K/mm3 (0.0-0.4); Eosinophils % 3.1 % (0.1-12.0); Hematocrit 35.4 % (37.0-47.0); Hemoglobin 11.1 g/dL (12.2-16.2); Lymphocytes # 1.1 K/mm3 (0.7-4.5); Lymphocytes % 30.9 % (10-50); Mean Corpuscular HGB Conc 31.4 g/dL (31.8-35.4); Mean Corpuscular Hemoglobin 31.9 pg (27.0-31.2); Mean Corpuscular Volume 101.7 fl (81-99); Mean Platelet Volume 11.5 fl (7.4-10.4); Monocytes # 0.2 K/mm3 (0.1-1.0); Neutrophils # 2.1 K/mm3 (1.8-7.8); Neutrophils % 58.8 % (37.0-80.0); Platelet Count 156 K/mm3 (142-424); Red Blood Count 3.48 M/mm3 (4.20-5.40); Red Cell Distribution Width 13.2 % (11.5-17.5); White Blood Count 3.5 K/mm3 (4.8-10.8)
[2024-05-27] MEDS: LEVOTHYROXINE SODIUM 100 MCG VIAL IV (06:11)
--- NOTE | 2024-05-27 06:35 | PC.NURSE ---
Pt a/o x4. Pt continued to require 4 L nc through the night while asleep. Pt on 2 L nc this AM tolerating well with sat mid 90s. Pt has been bradycardic with HR 40-60. Pt has not voiced any complaints to staff throughout shift. Pt receiving echo now. Call light within reach.
[2024-05-27 06:36] LABS: Blood Urea Nitrogen 14 mg/dl (7-17); Calcium 9.5 mg/dl (8.4-10.2); Chloride 94 mmol/L (98-107); Creatinine Clearance Estimated 106 mL/min (50-200); Estimated Glomerular Filt Rate 56 ml/min (>60); GFR (African American) 68 ML/MIN (>60); Glucose 98 mg/dl (74-100); Potassium 4.1 mmoL/L (3.5-5.1); Sodium 141 mmol/L (136-145)
[2024-05-27 06:44] LABS: Anion Gap 16.1 mEq/L (5-15); Carbon Dioxide 35 mmol/L (22.0-30.0)
[2024-05-27 07:32] LABS: Free T4 (Free Thyroxine) < 0.07 ng/dl (0.78-2.19)
--- NOTE | 2024-05-27 07:44 | US_ITS ---
FINAL REPORT TECHNIQUE: Sonographic images of the thyroid gland were obtained in the longitudinal and transverse planes. CLINICAL HISTORY: Severe hypothroidism FINDINGS: The right lobe measures 1.4 x 2.2 x 1.1 cm. The right lobe is diffusely heterogeneous. There are no cystic or solid nodules. The left lobe measures 1.6 x 2.0 x 1.0 cm. The left lobe is also heterogeneous. There is a densely calcified subcentimeter nodule with posterior shadowing. Otherwise, no concerning nodules are seen. The isthmus measures 2 mm. This is normal. IMPRESSION: Small, heterogeneous thyroid may represent thyroiditis. Calcified left thyroid nodule measuring less than 1 cm. No additional follow-up is needed. Reviewed, Interpreted and Dictated by Gerri Boothe MD Transcribed by Elva Loredo Authenticated and [facility]
[2024-05-27] MEDS: COLCHICINE 0.6MG TABLET 0.6 MG PO (08:47)
--- NOTE | 2024-05-27 09:31 | P.PN_ITS ---
Subjective Subjective Date: 05/27/24 Time: 09:31 Principal diagnosis: Pericardial effusion, myxedema Interval history: 63 yo WF in bed in NAD. Looks more alert today. No new complaints. BP is down to 119/62 mm Hg Prelim echo today is unchanged Exam Data for Last 24 hours Vital signs and Labs for Last 24 Hours: Temp Pulse Resp BP Pulse Ox O2 Del Method O2 Flow Rate 97.6 F 90 18 119/62 96 Nasal Cannula 2 05/27/24 08:01 05/27/24 08:01 05/27/24 08:01 05/27/24 08:01 05/27/24 08:01 05/27/24 08:01 05/27/24 08:01 Laboratory Results - last 24 hr 05/26/24 05:41: Hemoglobin A1c 6.2 H 05/26/24 08:05: Chlamy pneumoniae PCR Not detected, Adenovirus (PCR) Not detected, B. pertussis DNA (PCR) Not detected, Coronavirus OC43 (PCR) Not detected, Coronavirus HKU1 (PCR) Not detected, Coronavirus 229E (PCR) Not detected, SARS-CoV-2 (PCR) Not detected, Coronavirus NL63 (PCR) Not detected, Human Metapneumovir PCR Not detected, Influenza A (H1) PCR Not detected, Influ A (H1N1/09) PCR Not detected, Influenza A (H3) PCR Not detected, Influenza Type A (PCR) Not detected, Influenza Type B (PCR) Not detected, M. pneumoniae (PCR) Not detected, Parainfluenza 1 (PCR) Not detected, Parainfluenza 2 (PCR) Not detected, Parainfluenza 3 (PCR) Not detected, Parainfluenza 4 (PCR) Not detected, RSV (PCR) Not detected, Entero/Rhino (PCR) Not detected 05/26/24 08:20: C-Reactive Protein 4.8 H 05/26/24 14:00: Troponin I 1.47 H 05/27/24 05:25: WBC 3.5 L, RBC 3.48 L, Hgb 11.1 L, Hct 35.4 L, MCV 101.7 H, MCH 31.9 H, MCHC 31.4 L, RDW 13.2, Plt Count 156, MPV 11.5 H, Neut % (Auto) 58.8, Lymph % (Auto) 30.9, [place] % (Auto) 6.0, Eos % (Auto) 3.1, Baso % (Auto) 0.9, Neut # (Auto) 2.1, Lymph # (Auto) 1.1, [place] # (Auto) 0.2, Eos # (Auto) 0.1, Baso # (Auto) 0.0, Sodium 141, Potassium 4.1, Chloride 94 L, Carbon Dioxide 35 H, Anion Gap 16.1 H, BUN 14 D, Creatinine 1.00, Estimated Creat Clear 106, Estimated GFR 56 L, Est GFR ( Amer) 68, Glucose 98, Calcium 9.5, TSH 69.30 H, Free T4 < 0.07 L I & O for Last 24 hours: Intake & Output 05/24/24 05/25/24 05/26/24 05/27/24 11:59 11:59 11:59 11:59 Intake Total 840 / 840 Output Total 700 / 700 1000 / 1000 Balance -700 / -700 -160 / -160 Weight 253 lb 3.2 oz 251 lb 9.6 oz Constitutional Constitutional: no acute distress *Routine Respiratory Exam Respiratory: Present decreased breath sounds and CTA bilaterally *Routine Cardiovascular Exam Cardiovascular: Present RRR Progress Note: A&P Assessment and plan (1) Pericardial effusion: Status: Acute (2) Myxedema: Status: Acute (3) Obesity: Status: Acute (4) Ex-smoker for more than 1 year: Status: Acute (5) HTN (hypertension): Status: Acute (6) Hypoxia: Status: Acute Assessment and Plan Assessment and Plan for All Diagnoses:: 1. Pericardial effusion, large -echo today shows evidence that is worrisome for progression of the effusion and concern for cardiac tamponade -likely related to myxedema -follow with limited echo daily while in hospital -colchicine for possible pericarditis 2. Myxedema -IV levothyroxine started 3. Hypertension -continue to follow with recent start of levothyroxine 4. Hypoxia -oxygen as needed 5. Hyperlipidemia -LDL 161 -start statin 6. Elevated troponin -likely related to effusion or possible pericarditis 7. Abnormal EKG -check echo -monitor as pericardial effusion resolves -concern for old CO and possible type 3 Brugada syndrome Plan for pericardiocentesis today
[2024-05-27] MEDS: LORATADINE 10MG TABLET 10 MG PO (09:55)
[2024-05-27 11:24] LABS: Antinuclear Antibodies (ANA) Negative (Negative)
[2024-05-27 14:12] LABS: Triiodothyronine (T3) Free <0.3 pg/mL (2.0-4.4)
--- NOTE | 2024-05-27 14:57 | CA_ITS ---
APPROVED REPORT EXAM: Limited 2D Echocardiogram Basket Sorter: ORTEGA Carter, RVS Ht: 5 ft 7 in Wt: 253lbs BSA: 2.24 BP: 160/90 mmHg Indications: Post pericardiocentesis Other Information Study Quality: Fair Conclusion This is a limited TTE to evaluate for pericardial effusion during pericardiocentesis. Limited windows are obtained. In this study, postprocedure TTE images are obtained. There is a small sized, residual pericardial effusion present. The effusion is mostly noted posteriorly and measures approximately 8 mm in its largest dimension. Compared to prior study from 05/27/2024, the size of the pericardial effusion is significantly smaller. Serial TTE's are suggested to evaluate for further resolution of the pericardial effusion. The above findings were communicated with the inpatient cardiology consult team at the time of image acquisition. Electronically signed by : Danelle Ruiz MD 05/30/2024 21:40:41
--- NOTE | 2024-05-27 15:55 | IR_ITS ---
APPROVED REPORT Employee Operations Examiner: Procedure Pericardiocentesis Placement of pericardial pigtail drain into the pericardial space Indication for procedure Cardiac tamponade Pericardial effusion Informed consent was obtained prior to procedure Complications none Blood loss less than 10 cc Technique 1% lidocaine used anesthetize the subxiphoid area the patient had been sterilely prepped and adequately sedated. Pericardial needle was directed toward the pericardial effusion and under fluoroscopic guidance the needle was entered along with the addition of a J-wire. The dilator was used to dilate the track into the pericardial space and this was followed by placement of a pigtail pericardial drain. 2000 cc of serosanguineous fluid was removed from the pericardial space. Echocardiogram at the end of the procedure demonstrated complete resolution of the pericardial effusion. The pigtail catheter was sutured into place and a bag was placed to gravity drain at bedside. Impression Successful pericardiocentesis alleviating cardiac tamponade Plan [place] drain overnight Repeat echocardiogram in the morning Assess daily when the pigtail catheter should be dry and Continue treatment of myxedema Conclusion Electronically signed by : Carlos Hoyt MD 05/27/2024 17:51:21
[2024-05-27] MEDS: HEPARIN 1,000 UNITS/500ML NS (CATH LAB) 3000 UNIT IV (18:05)
[2024-05-27] MEDS: LIDOCAINE 1% 10ML MDV 20 ML IJ (18:06)
[2024-05-27] MEDS: MIDAZOLAM HCL 1MG/ML 5ML VIAL 1 MG IV (18:07)
[2024-05-27] MEDS: FENTANYL 100MCG/2ML VIAL 50 MCG IV (18:09)
[2024-05-27] MEDS: 0.9 % SODIUM CHLORIDE 500 ML 25 ML IV (18:10)
[2024-05-27] MEDS: ATORVASTATIN 40MG TABLET 80 MG PO (20:41)
--- NOTE | 2024-05-27 22:20 | EXP.PN ---
Subjective *Date: 05/27/24 *Time: 22:20 Interval history: Patient is very pleasant and states she feels great today. Continues to be edematous. Vital signs stable. Exam Data for Last 24 hours Vital signs and Labs for Last 24 Hours: Temp Pulse Resp BP Pulse Ox O2 Del Method O2 Flow Rate 98.3 F 66 15 141/75 H 94 L Nasal Cannula 4 05/27/24 18:15 05/27/24 22:15 05/27/24 19:45 05/27/24 22:15 05/27/24 22:15 05/27/24 22:17 05/27/24 22:17 Laboratory Results - last 24 hr 05/26/24 05:41: Free T3 <0.3 L 05/26/24 08:20: PETAR Screen Negative 05/27/24 05:25: WBC 3.5 L, RBC 3.48 L, Hgb 11.1 L, Hct 35.4 L, MCV 101.7 H, MCH 31.9 H, MCHC 31.4 L, RDW 13.2, Plt Count 156, MPV 11.5 H, Neut % (Auto) 58.8, Lymph % (Auto) 30.9, [place] % (Auto) 6.0, Eos % (Auto) 3.1, Baso % (Auto) 0.9, Neut # (Auto) 2.1, Lymph # (Auto) 1.1, [place] # (Auto) 0.2, Eos # (Auto) 0.1, Baso # (Auto) 0.0, Sodium 141, Potassium 4.1, Chloride 94 L, Carbon Dioxide 35 H, Anion Gap 16.1 H, BUN 14 D, Creatinine 1.00, Estimated Creat Clear 106, Estimated GFR 56 L, Est GFR ( Amer) 68, Glucose 98, Calcium 9.5, TSH 69.30 H, Free T4 < 0.07 L 05/27/24 15:05: Troponin I 0.80 H I & O for Last 24 hours: Intake & Output 05/24/24 05/25/24 05/26/24 05/27/24 23:59 23:59 23:59 23:59 Intake Total 420 / 420 780 / 780 Output Total 1700 / 1700 1350 / 1350 Balance -1280 / -1280 -570 / -570 Weight 114.8 kg 114.124 kg Constitutional Constitutional: no acute distress *Routine HEENT Exam Head: Present normocephalic Eye: Present EOMI and PERRL ENT: Present mucous membranes moist *Routine Neck Exam Neck: Present supple; Absent lymphadenopathy *Routine Respiratory Exam Respiratory: Present CTA bilaterally *Routine Cardiovascular Exam Cardiovascular: Present RRR *Routine Abdominal Exam Abdominal: Present soft and normoactive bowel sounds; Absent tenderness *Routine Extremities Exam Extremities: Present edema; Absent cyanosis or clubbing *Routine Skin Exam Skin: Present warm; Absent rash *Routine Neurological Exam Neurological: Present alert and oriented X3 Assessment and Plan *Assessment and plan (1) Myxedema: Status: Acute Category: Medical Code(s): E03.9 - Hypothyroidism, unspecified Plan Shaye Pederson is a 63-year-old female with no known past medical history who presents with chest pain and was admitted for significant pericardial effusion, myxedema, hypothyroidism. #Pericardial effusion #Severe hypothyroidism #Myxedema ? Patient has diffuse swelling, dry skin, and presented with significant pericardial effusion. No true tamponade physiology. Vital signs stable. ? Cardiology consulted, s/p pericardiocentesis 05/27/2024 with nearly 2 L output. Patient tolerated procedure well. ? Continue IV levothyroxine 100 mcg. ? Started oral liothyronine 25 mcg today. ? Continue colchicine per cardiology. ? Follow-up thyroid antibody studies. ? Follow-up thyroid ultrasound. #Allergic rhinitis ? Started loratadine. Full code DVT prophylaxis: Hold off on anticoagulation due to pericardial drain
[2024-05-28] VITALS (32 sets, daily range): BP systolic 100–144; BP diastolic 54–85; PULSE 50–66; RESP 7–19; TEMP 36.4–36.9; O2SAT 89–96; BMI 37.4
--- NOTE | 2024-05-28 | CA_ITS ---
APPROVED REPORT EXAM: Limited 2D Echocardiogram [employer] Programmer Analyst: Nolvia West, RCS, RVS Ht: 5 ft 7 in Wt: 246lbs BSA: 2.21 BP: 120/70 mmHg Indications: 17 hours post pericardial centesis, LVH, HTN, Acute hypothyroidism,SOAEx-smoker, Obesity Echo Enhancing Agent Comments: Persistant pericardial effusion M-Mode Dimensions RVDd 3.23 cm (0.9-2.6) LVDd 3.77 cm (3.5-5.7) LVDs 2.42 cm (3.5-5.7) IVSd 1.24 cm (0.6-1.1) PWd 1.67 cm (0.6-1.1) EF (Teich) 66.10% EPSs 0.70 cm FS 35.80% EDV (Teich) 60.80 mL ESV (Teich) 20.60 mL Other Information Study Quality: Fair Conclusion This is a limited TTE to evaluate for pericardial effusion in the setting of ongoing pericardial drainage. Limited windows are obtained. There is a moderate-sized, circumferential pericardial effusion present. The largest pocket is noted posteriorly and measures 16 mm in diastole. The anterior pocket is smaller in size and measures approximately 9 mm in diastole. No echo indications of tamponade. Compared to prior study pre-pericardiocentesis, the pericardial effusion size is significantly smaller. The above findings were communicated with the inpatient cardiology consult team in real-time at the time of image acquisition. Electronically signed by : Danelle Ruiz MD 05/30/2024 21:29:18
[2024-05-28 03:36] LABS: Thyroid Peroxidase Antibodies 193 IU/mL (0-34)
[2024-05-28 06:01] LABS: Basophils % 0.5 % (0.1-2.0); Eosinophils # 0.1 K/mm3 (0.0-0.4); Eosinophils % 1.7 % (0.1-12.0); Hematocrit 41.4 % (37.0-47.0); Lymphocytes # 0.8 K/mm3 (0.7-4.5); Lymphocytes % 12.7 % (10-50); Mean Corpuscular HGB Conc 31.4 g/dL (31.8-35.4); Mean Corpuscular Hemoglobin 31.9 pg (27.0-31.2); Mean Corpuscular Volume 101.5 fl (81-99); Mean Platelet Volume 11.5 fl (7.4-10.4); Monocytes # 0.3 K/mm3 (0.1-1.0); Monocytes % 5.1 % (1.7-9.3); Neutrophils # 5.1 K/mm3 (1.8-7.8); Neutrophils % 79.5 % (37.0-80.0); Platelet Count 172 K/mm3 (142-424); Red Blood Count 4.08 M/mm3 (4.20-5.40); Red Cell Distribution Width 13.2 % (11.5-17.5); White Blood Count 6.5 K/mm3 (4.8-10.8)
[2024-05-28 06:05] LABS: Blood Urea Nitrogen 13 mg/dl (7-17); Calcium 9.1 mg/dl (8.4-10.2); Chloride 93 mmol/L (98-107); Creatinine Clearance Estimated 104 mL/min (50-200); Estimated Glomerular Filt Rate 56 ml/min (>60); GFR (African American) 68 ML/MIN (>60); Glucose 118 mg/dl (74-100); Potassium 3.7 mmoL/L (3.5-5.1); Sodium 140 mmol/L (136-145)
[2024-05-28 06:12] LABS: Anion Gap 14.7 mEq/L (5-15); Carbon Dioxide 36 mmol/L (22.0-30.0)
[2024-05-28 06:28] LABS: Free T4 (Free Thyroxine) 0.11 ng/dl (0.78-2.19)
[2024-05-28] MEDS: LEVOTHYROXINE SODIUM 100 MCG VIAL IV (07:30)
[2024-05-28] MEDS: COLCHICINE 0.6MG TABLET 0.6 MG PO (08:59)
--- NOTE | 2024-05-28 13:03 | P.PN_ITS ---
Subjective Subjective Date: 05/28/24 Time: 13:03 Principal diagnosis: Pericardial effusion, myxedema Interval history: 63 yo WF in bed in NAD Pericardial drain in place with less than 100 mL since placement Echocardiogram today shows still with some fluid around the heart with recommendation to consider repositioning. No evidence of tamponade. Drain repositioned, additional 50-75 ml removed before fluid stopped, drain removed. Exam Data for Last 24 hours Vital signs and Labs for Last 24 Hours: Temp Pulse Resp BP Pulse Ox O2 Del Method O2 Flow Rate 97.6 F 60 16 137/71 92 L Nasal Cannula 4 05/28/24 12:00 05/28/24 12:00 05/28/24 12:00 05/28/24 12:00 05/28/24 12:00 05/28/24 12:00 05/28/24 12:00 Laboratory Results - last 24 hr 05/26/24 05:41: Free T3 <0.3 L 05/27/24 05:20: Thyroid Peroxidase Ab 193 H 05/27/24 15:05: Troponin I 0.80 H 05/28/24 05:31: WBC 6.5 D, RBC 4.08 L, Hgb 13.0, Hct 41.4, MCV 101.5 H, MCH 31.9 H, MCHC 31.4 L, RDW 13.2, Plt Count 172, MPV 11.5 H, Neut % (Auto) 79.5, Lymph % (Auto) 12.7, [place] % (Auto) 5.1, Eos % (Auto) 1.7, Baso % (Auto) 0.5, Neut # (Auto) 5.1, Lymph # (Auto) 0.8, [place] # (Auto) 0.3, Eos # (Auto) 0.1, Baso # (Auto) 0.0, Sodium 140, Potassium 3.7, Chloride 93 L, Carbon Dioxide 36 H, Anion Gap 14.7, BUN 13, Creatinine 1.00, Estimated Creat Clear 104, Estimated GFR 56 L, Est GFR ( Amer) 68, Glucose 118 H, Calcium 9.1, TSH 64.40 H, Free T4 0.11 L I & O for Last 24 hours: Intake & Output 05/26/24 05/27/24 05/28/24 05/29/24 11:59 11:59 11:59 11:59 Intake Total 840 / 840 630 / 630 Output Total 700 / 700 1000 / 1000 1950 / 1950 Balance -700 / -700 -160 / -160 -1320 / -1320 Weight 253 lb 3.2 oz 251 lb 9.6 oz 246 lb 14.684 oz Microbiology Reports for the Last 24 Hours: Microbiology 05/26/24 04:20 Anus CRE Surveillance Culture - Final Negative Constitutional Constitutional: no acute distress *Routine Respiratory Exam Respiratory: Present decreased breath sounds and crackles; Absent wheezes *Routine Cardiovascular Exam Cardiovascular: Present RRR; Absent murmur, gallop or rubs Progress Note: A&P Assessment and plan (1) Myxedema: Status: Acute (2) Pericardial effusion: Status: Acute (3) Obesity: Status: Acute (4) Ex-smoker for more than 1 year: Status: Acute (5) HTN (hypertension): Status: Acute (6) Hypoxia: Status: Acute Assessment and Plan Assessment and Plan for All Diagnoses:: 1. Pericardial effusion, large -pericardiocentesis with 2 liters of fluid removed on 05/27/2024 -likely related to myxedema -follow with limited echo daily while in hospital -colchicine for possible pericarditis 2. Myxedema -IV levothyroxine started -thyroid u/s shows small, heterogeneous thyroid may represent thyroiditis 3. History of Hypertension -continue to follow with recent start of levothyroxine 4. Hypoxia -oxygen as needed 5. Hyperlipidemia -LDL 161 -start statin 6. Elevated troponin -likely related to effusion or possible pericarditis 7. Abnormal EKG -echo EF 55% -monitor as pericardial effusion resolves -concern for old MS and possible type 3 Brugada syndrome (likely just related to pericardial effusion) Dr. Hoyt repositioned drain with additional fluid removed (<75 ml) and then drain removed. Continue IV levothroxine replacement per Hospitalist.
--- NOTE | 2024-05-28 14:22 | SUR.PHASEII ---
Called [facility] to order pericardial fluid chemistry per dr bustamante, stated he would get it order. Lab already has fluid, was waiting on orders.
--- NOTE | 2024-05-28 15:04 | PC.NURSE ---
Pericardial drain removed at bedside by provider. Pt tolerated well.
[2024-05-28 15:25] LABS: Appearance,Body Fld. Slightly cloudy; Source, Body Fld. Pericardial Fluid
[2024-05-28 15:40] LABS: TNC,Body Fluid 74 cells/uL (< 1000); Volume,Body Fld. 63 mL
[2024-05-28 15:41] LABS: RBC,Body Fluid 3 cells/uL (< 10 X 10^3)
--- NOTE | 2024-05-28 15:59 | P.PCN_ITS ---
[facility] Procedure Note Date: 05/28/24 Time: 15:00 Procedure Note:: Pericardial drain with 3 way stop cock was accessed with sterile syringe. Drain repositioned with additional serosanguinous fluid removed totaling less than 75 ml. The drain was subsequently removed and suture was cut and removed as well. Patient tolerated the procedure without complications. Dr. Hoyt performed the procedure.
[2024-05-28 16:54] LABS: Polynuclear WBC,Body Fluid 10 %
[2024-05-28 16:55] LABS: Mononuclear WBCs,Body Fluid 90 %
--- NOTE | 2024-05-28 17:57 | PC.NURSE ---
arrived by bed to floor
--- NOTE | 2024-05-28 18:38 | EXP.PN ---
Subjective *Date: 05/28/24 *Time: 18:38 Interval history: Patient doing well today, no acute complaints. Pericardial drain removed by Dr. Hoyt. Continues cardiac telemetry. Patient remained stable, will discharge in 1 to 2 days with close follow-up with cardiology. Exam Data for Last 24 hours Vital signs and Labs for Last 24 Hours: Temp Pulse Resp BP Pulse Ox O2 Del Method O2 Flow Rate 97.6 F 60 13 123/68 93 L Nasal Cannula 3 05/28/24 12:00 05/28/24 17:00 05/28/24 17:00 05/28/24 17:00 05/28/24 17:00 05/28/24 17:00 05/28/24 17:00 Laboratory Results - last 24 hr 05/27/24 05:20: Thyroid Peroxidase Ab 193 H 05/27/24 17:45: Fluid Source Pericardial fluid, Fluid Volume 63, Fluid Appearance Slightly cloudy, Fluid RBC (Auto) 3, Fld Tot Nucleated Cell 74, Fld Polynuclear WBCs % 10, Fld Mononuclear WBCs % 90 05/28/24 05:31: WBC 6.5 D, RBC 4.08 L, Hgb 13.0, Hct 41.4, MCV 101.5 H, MCH 31.9 H, MCHC 31.4 L, RDW 13.2, Plt Count 172, MPV 11.5 H, Neut % (Auto) 79.5, Lymph % (Auto) 12.7, [place] % (Auto) 5.1, Eos % (Auto) 1.7, Baso % (Auto) 0.5, Neut # (Auto) 5.1, Lymph # (Auto) 0.8, [place] # (Auto) 0.3, Eos # (Auto) 0.1, Baso # (Auto) 0.0, Sodium 140, Potassium 3.7, Chloride 93 L, Carbon Dioxide 36 H, Anion Gap 14.7, BUN 13, Creatinine 1.00, Estimated Creat Clear 104, Estimated GFR 56 L, Est GFR ( Amer) 68, Glucose 118 H, Calcium 9.1, TSH 64.40 H, Free T4 0.11 L I & O for Last 24 hours: Intake & Output 05/25/24 05/26/24 05/27/24 05/28/24 23:59 23:59 23:59 23:59 Intake Total 420 / 420 780 / 780 910 / 910 Output Total 1700 / 1700 1350 / 1350 990 / 990 Balance -1280 / -1280 -570 / -570 -80 / -80 Weight 114.8 kg 114.124 kg 112 kg Microbiology Reports for the Last 24 Hours: Microbiology 05/27/24 Unknown Pericardial Fluid Gram Stain - Final 05/26/24 04:20 Anus CRE Surveillance Culture - Final Negative Constitutional Constitutional: no acute distress *Routine HEENT Exam Head: Present normocephalic Eye: Present EOMI and PERRL ENT: Present mucous membranes moist *Routine Neck Exam Neck: Present supple; Absent lymphadenopathy *Routine Respiratory Exam Respiratory: Present CTA bilaterally *Routine Cardiovascular Exam Cardiovascular: Present RRR *Routine Abdominal Exam Abdominal: Present soft and normoactive bowel sounds; Absent tenderness *Routine Extremities Exam Extremities: Present edema; Absent cyanosis or clubbing *Routine Skin Exam Skin: Present warm; Absent rash *Routine Neurological Exam Neurological: Present alert and oriented X3 Assessment and Plan *Assessment and plan (1) Myxedema: Status: Acute Category: Medical Code(s): E03.9 - Hypothyroidism, unspecified Plan Shaye Pederson is a 63-year-old female with no known past medical history who presents with chest pain and was admitted for significant pericardial effusion, myxedema, hypothyroidism. #Pericardial effusion #Hypothyroidism #Myxedema #NSTEMI type II ? Patient has diffuse swelling, dry skin, and presented with significant pericardial effusion. No true tamponade physiology. Vital signs stable. ? Troponins peaked at 1.47, down trended to 0.80. EKG without acute ischemic changes. ? Cardiology consulted, s/p pericardiocentesis 05/27/2024 with nearly 2 L output. Patient tolerated procedure well. Pericardial drain had about 100 mL overnight, and an additional [address] Hoyt repositioned drain. Drain was subsequently removed by Dr. Hoyt. ? Continue IV levothyroxine 100 mcg. ? Continue oral liothyronine (T3) 25 mcg. ? Continue colchicine per cardiology for suspected pericarditis. ? Thyroid peroxidase antibodies positive. ? Thyroid ultrasound showed small heterogeneous thyroid which may represent thyroiditis, calcified left thyroid nodule measuring less than 1 cm. Additional follow-up was not suggested. ? Continuous cardiac telemetry. If patient remained stable, will consider discharge with close follow-up with cardiology within 1 to 2 days. #Allergic rhinitis ? Continue loratadine. Full code DVT prophylaxis: Lovenox 40 mg
[2024-05-28] MEDS: ATORVASTATIN 40MG TABLET 80 MG PO (20:06)
[2024-05-28] MEDS: NYSTATIN TOPICAL POWDER 30GM TP (20:07)
[2024-05-29] VITALS (10 sets, daily range): BP systolic 114–127; BP diastolic 62–75; PULSE 55–65; RESP 10–17; TEMP 36.3–37.2; O2SAT 92–98; BMI 31.4
[2024-05-29 07:02] LABS: Basophils % 0.3 % (0.1-2.0); Eosinophils # 0.1 K/mm3 (0.0-0.4); Eosinophils % 1.9 % (0.1-12.0); Hematocrit 44.1 % (37.0-47.0); Hemoglobin 13.7 g/dL (12.2-16.2); Mean Corpuscular HGB Conc 31.1 g/dL (31.8-35.4); Mean Corpuscular Hemoglobin 32.3 pg (27.0-31.2); Mean Platelet Volume 11.4 fl (7.4-10.4); Monocytes # 0.3 K/mm3 (0.1-1.0); Monocytes % 4.8 % (1.7-9.3); Neutrophils % 77.7 % (37.0-80.0); Platelet Count 168 K/mm3 (142-424); Red Blood Count 4.24 M/mm3 (4.20-5.40); Red Cell Distribution Width 13.4 % (11.5-17.5); White Blood Count 6.5 K/mm3 (4.8-10.8)
[2024-05-29 07:11] LABS: Chloride 95 mmol/L (98-107); Sodium 140 mmol/L (136-145)
[2024-05-29 07:14] LABS: Blood Urea Nitrogen 13 mg/dl (7-17); Creatinine Clearance Estimated 88 mL/min (50-200); Estimated Glomerular Filt Rate 56 ml/min (>60); GFR (African American) 68 ML/MIN (>60)
[2024-05-29 07:15] LABS: Calcium 9.1 mg/dl (8.4-10.2); Glucose 119 mg/dl (74-100)
[2024-05-29 07:21] LABS: Carbon Dioxide 36 mmol/L (22.0-30.0)
[2024-05-29] MEDS: COLCHICINE 0.6MG TABLET 0.6 MG PO (08:26)
[2024-05-29] MEDS: LORATADINE 10MG TABLET 10 MG PO (08:26)
[2024-05-29] MEDS: NYSTATIN TOPICAL POWDER 30GM TP ×2 (08:27→20:24)
[2024-05-29] MEDS: ENOXAPARIN 40MG/0.4ML SYRINGE 40 MG SUBCUT (08:30)
[2024-05-29] MEDS: LEVOTHYROXINE SODIUM 100 MCG VIAL 150 MCG IV (08:31)
[2024-05-29 08:33] LABS: Free T4 (Free Thyroxine) 0.16 ng/dl (0.78-2.19)
[2024-05-29 08:45] LABS: Triiodothyronine (T3) Free 0.4 pg/mL (2.0-4.4)
[2024-05-29] MEDS: FUROSEMIDE 40MG/4ML VIAL 40 MG IV (15:45)
--- NOTE | 2024-05-29 16:47 | HMH.PTEV ---
Physical Therapy Evaluation Rehab PT IP Evaluation Start: 05/29/24 10:15 Freq: ONCE Status: Active Protocol: Document 05/29/24 16:43 SAI (Rec: 05/29/24 16:47 PHOJORGE ALBERTO [id number]) Subjective/History History History 63-year-old female who does not have any significant past medical history who presents with a chief complaint of chest pain and radiates to her jaw. It was, she presented to while in the emergency room, patient was noted to be 87% on room air. CTA of the chest showed a significant pericardial effusion leading to tamponade and patient was hypertensive. Due to these findings, patient's case was discussed with highway worker who recommended admission for potential pericardiocentesis. Due to these recommendations, patient has been admitted for further management. Pt had pericardial drain removed but continues to need oxygen via NC. She reports she lives with her , 2-3 MANPREET the home , and she is generally independent with all mobility without AD at baseline. Subjective Subjective Pt reports feeling much better overall. Agrees to mobility assessment this pm. present during examination. New diagnosis of cancer in past 12 No months? [facility] How much help from another person do you currently need... Turning from your back to your side None while in a flat bed without using bedrails? Moving from lying on back to sitting on None the side of a flat bed without using bedrails? Moving to and from a bed to a chair ( None including a wheelchair)? Standing up from a chair using your arms None ? (e.g., wheelchair, bedside chair) Walking in hospital room? None Climbing 3-5 steps with a railing? None Mobility Score 24 Mobility Level [facility] Mobility Calculator Mobility 8 Walk 250 feet or more Rehab PT IP Eval Objective Appearance Patient Behavior Appropriate Patient Orientation Person,Place,Time Difficulty following instructions none Speech Pattern Clear Ambulation Patient Able to Ambulate Yes Ambulation Observation IP General Gait Pattern Observation No Deviations/Normal Ambulation Distance (feet) 50 Ambulation Assistive Device None Ambulation Ability Independent Balance Ability to Arise Able, uses arms to help Sitting Balance Steady, safe Standing Balance Steady, wide stance Dynamic Sitting Balance Ability Good Dynamic Standing Balance Ability Good Transfers Bed Transfer Ability Independent Chair Transfer Ability Independent Sit to Stand Bed Transfer Ability Independent Sit to Stand Chair Transfer Ability Independent Rehab PT IP prob,goals,plan Problems Date of Evaluation: 05/29/24 Discharge Plan PT Discharge Plan Pt is currently appropriate to return home once medically stable for d/c. No skilled acute therapy needs at this time. Eval Complexity Eval Charge Codes 11051 - High Complexity PHYSICIAN CERTIFICATION: I certify the specified therapy services for Shaye Pederson are required, authorized, and reviewed every 30 days.
[2024-05-29] MEDS: POLYETHYLENE GLYCOL 3350 17 GM PACKET PO (16:51)
--- NOTE | 2024-05-29 17:49 | PC.NURSE ---
Pt A&Ox4. Pt ambulating independently in room and was cleared by PT. Still requirring 4L NC and does not tolerate being weaned pt drops in the 80's on 2L NC. 2+ Pitting edema in extremities and under eyes. Pt resting in bed most of day. at bedside. Call light in reach.
[2024-05-29] MEDS: ATORVASTATIN 40MG TABLET 80 MG PO (20:22)
--- NOTE | 2024-05-29 21:56 | EXP.PN ---
Subjective *Date: 05/29/24 *Time: 21:56 Interval history: Patient is doing well today ambulating independently. Patient had desaturations to 76 on room air on walk test, requiring 4 L with exertion. CXR shows edema likely from myxedema, given IV Lasix 40 mg. Follow-up response. Exam Data for Last 24 hours Vital signs and Labs for Last 24 Hours: Temp Pulse Resp BP Pulse Ox O2 Del Method O2 Flow Rate 99.0 F 60 17 127/75 95 Room Air 4 05/29/24 19:54 05/29/24 20:00 05/29/24 19:54 05/29/24 19:54 05/29/24 19:54 05/29/24 21:00 05/29/24 20:00 Laboratory Results - last 24 hr 05/28/24 05:31: Free T3 0.4 L 05/29/24 06:35: WBC 6.5, RBC 4.24, Hgb 13.7, Hct 44.1, MCV 104.0 H, MCH 32.3 H, MCHC 31.1 L, RDW 13.4, Plt Count 168, MPV 11.4 H, Neut % (Auto) 77.7, Lymph % (Auto) 15.0, [place] % (Auto) 4.8, Eos % (Auto) 1.9, Baso % (Auto) 0.3, Neut # (Auto) 5.0, Lymph # (Auto) 1.0, [place] # (Auto) 0.3, Eos # (Auto) 0.1, Baso # (Auto) 0.0, Sodium 140, Potassium 4.0, Chloride 95 L, Carbon Dioxide 36 H, Anion Gap 13.0, BUN 13, Creatinine 1.00, Estimated Creat Clear 88, Estimated GFR 56 L, Est GFR ( Amer) 68, Glucose 119 H, Calcium 9.1, TSH 64.60 H, Free T4 0.16 L I & O for Last 24 hours: Intake & Output 05/26/24 05/27/24 05/28/24 05/29/24 23:59 23:59 23:59 23:59 Intake Total 420 / 420 780 / 780 910 / 940 745 / 745 Output Total 1700 / 1700 1350 / 1350 990 / 990 0 / 0 Balance -1280 / -1280 -570 / -570 -80 / -50 745 / 745 Weight 114.8 kg 114.124 kg 112 kg 93.894 kg Microbiology Reports for the Last 24 Hours: Microbiology 05/27/24 Unknown Pericardial Fluid Gram Stain - Final 05/27/24 Unknown Pericardial Fluid Body Fluid Culture - Preliminary NO GROWTH AFTER 24 HOURS Constitutional Constitutional: no acute distress *Routine HEENT Exam Head: Present normocephalic Eye: Present EOMI and PERRL ENT: Present mucous membranes moist *Routine Neck Exam Neck: Present supple; Absent lymphadenopathy *Routine Respiratory Exam Respiratory: Present CTA bilaterally *Routine Cardiovascular Exam Cardiovascular: Present RRR *Routine Abdominal Exam Abdominal: Present soft and normoactive bowel sounds; Absent tenderness *Routine Extremities Exam Extremities: Present edema; Absent cyanosis or clubbing *Routine Skin Exam Skin: Present warm; Absent rash *Routine Neurological Exam Neurological: Present alert and oriented X3 Assessment and Plan *Assessment and plan (1) Myxedema: Status: Acute Category: Medical Code(s): E03.9 - Hypothyroidism, unspecified Plan Shaye Pederson is a 63-year-old female with no known past medical history who presents with chest pain and was admitted for significant pericardial effusion, myxedema, hypothyroidism. #Pericardial effusion #Hypothyroidism #Myxedema #NSTEMI type II #Acute hypoxic respiratory failure ? Patient has diffuse swelling, dry skin, and presented with significant pericardial effusion. No true tamponade physiology. Vital signs stable. ? Troponins peaked at 1.47, down trended to 0.80. EKG without acute ischemic changes. ? Cardiology consulted, s/p pericardiocentesis 05/27/2024 with nearly 2 L output. Patient tolerated procedure well. Pericardial drain had about 100 mL overnight, and an additional [address] Hoyt repositioned drain. Drain was subsequently removed by Dr. Hoyt. ? Increased IV levothyroxine 150 mcg. ? Continue oral liothyronine (T3) 25 mcg day 2/3 ? Continue colchicine per cardiology for suspected pericarditis. ? Thyroid peroxidase antibodies positive. ? Thyroid ultrasound showed small heterogeneous thyroid which may represent thyroiditis, calcified left thyroid nodule measuring less than 1 cm. Additional follow-up was not suggested. ? Patient had desaturations to 76 on room air on walk test, requiring 4 L with exertion. CXR shows edema likely from myxedema, given IV Lasix 40 mg. Follow-up response. ? Continuous cardiac telemetry. If patient remained stable, will consider discharge with close follow-up with cardiology within 1 to 2 days. #Allergic rhinitis ? Continue loratadine. Full code DVT prophylaxis: Lovenox 40 mg
[2024-05-30] VITALS (7 sets, daily range): BP systolic 114–147; BP diastolic 63–71; PULSE 60–71; RESP 15–18; TEMP 36.4–37; O2SAT 55–96; BMI 31.4
[2024-05-30 05:51] LABS: Basophils % 0.6 % (0.1-2.0); Eosinophils # 0.2 K/mm3 (0.0-0.4); Eosinophils % 2.3 % (0.1-12.0); Hematocrit 41.2 % (37.0-47.0); Lymphocytes % 14.1 % (10-50); Mean Corpuscular HGB Conc 31.6 g/dL (31.8-35.4); Mean Corpuscular Hemoglobin 32.7 pg (27.0-31.2); Mean Corpuscular Volume 103.8 fl (81-99); Mean Platelet Volume 11.2 fl (7.4-10.4); Monocytes # 0.4 K/mm3 (0.1-1.0); Monocytes % 5.5 % (1.7-9.3); Neutrophils # 5.4 K/mm3 (1.8-7.8); Neutrophils % 77.2 % (37.0-80.0); Platelet Count 168 K/mm3 (142-424); Red Blood Count 3.97 M/mm3 (4.20-5.40); Red Cell Distribution Width 13.3 % (11.5-17.5); White Blood Count 6.9 K/mm3 (4.8-10.8)
[2024-05-30 05:56] LABS: Chloride 93 mmol/L (98-107); Potassium 3.8 mmoL/L (3.5-5.1); Sodium 141 mmol/L (136-145)
[2024-05-30 05:59] LABS: Blood Urea Nitrogen 14 mg/dl (7-17); Creatinine Clearance Estimated 88 mL/min (50-200); Estimated Glomerular Filt Rate 56 ml/min (>60); GFR (African American) 68 ML/MIN (>60)
[2024-05-30 06:00] LABS: Calcium 9.1 mg/dl (8.4-10.2); Glucose 100 mg/dl (74-100)
[2024-05-30 06:06] LABS: Anion Gap 11.8 mEq/L (5-15); Carbon Dioxide 40 mmol/L (22.0-30.0)
--- NOTE | 2024-05-30 06:13 | PC.NURSE ---
patient had increased oxygen requirements t/o shift, increased to 5L NC. desatted to 55% at one point with frequent desats in the 70's with sleep and ambulation. patient takes roughly a minute to recover to 90% once woken. SEE Vital Signs. unable to attempt to wean O2
[2024-05-30 06:27] LABS: Free T4 (Free Thyroxine) 0.22 ng/dl (0.78-2.19)
[2024-05-30] MEDS: FUROSEMIDE 40MG/4ML VIAL 40 MG IV (09:03)
[2024-05-30] MEDS: ENOXAPARIN 40MG/0.4ML SYRINGE 40 MG SUBCUT (09:03)
[2024-05-30] MEDS: LEVOTHYROXINE SODIUM 100 MCG VIAL 150 MCG IV (09:06)
[2024-05-30] MEDS: LORATADINE 10MG TABLET 10 MG PO (09:06)
[2024-05-30] MEDS: NYSTATIN TOPICAL POWDER 30GM TP (09:07)
[2024-05-30] MEDS: POLYETHYLENE GLYCOL 3350 17 GM PACKET PO (09:07)
[2024-05-30] MEDS: COLCHICINE 0.6MG TABLET 0.6 MG PO (09:10)
[2024-05-30 10:06] LABS: Chol/HDL Ratio 5.8 (1-3.5); Cholesterol 267 mg/dl (140-200); HDL Cholesterol 46 mg/dl (40-60); Triglycerides 174 mg/dl (30-150); VLDL Cholesterol 35 mg/dL (0-40)
[2024-05-30 10:17] LABS: Direct LDL Cholesterol 158.03 mg/dL (100-129)
--- NOTE | 2024-05-30 12:21 | P.DS_ITS ---
General Admission date:: 05/26/24 HPI HPI HPI: This is a 63-year-old female who does not have any significant past medical history who presents with a chief complaint of chest pain and radiates to her jaw. It was, she presented to while in the emergency room, patient was noted to be 87% on room air. CTA of the chest showed a significant pericardial effusion leading to tamponade and patient was hypertensive. Due to these findings, patient's case was discussed with market editor who recommended admission for potential pericardiocentesis. Due to these recommendations, patient has been admitted for further management. 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 She voices having no significant history and has not seen a doctor in over 10 years. Patient states that she was watching television when she started to experiencing a forementioned symptomology. Patient is normally independent of any supplemental oxygen and she does have a prior smoking history of 1 pack daily but she quit 10 years ago. Patient states she has been having swelling of the eyes. Patient voices she did receive 2 doses of the Moderna and post inoculation, patient states she started to lose her hair. She is currently denying any lightheadedness, dizziness, fever, chills, PND, nausea, vomiting, dyspnea, or diarrhea. Additional pertinent labs obtained including white blood cell count 4, red blood cell count 3.68, hemoglobin 11.8, hematocrit 36.6, D- dimer 0.61, PTT of 32.2, pH of 7.42, pCO2 of 31.5, bicarb of 30.1, chloride of 96, carbon oxide of 39, blood glucose 141, TSH is 69.80, and free T4 is less than 0.07, and AST of 43. Hospital Course Hospital Course Hospital Course: Shaye Pederson is a 63-year-old female with no known past medical history who presents with chest pain and was admitted for significant pericardial effusion, myxedema, hypothyroidism. #Pericardial effusion #Hypothyroidism #Myxedema #NSTEMI type II #Acute hypoxic respiratory failure ? Patient has diffuse swelling, dry skin, fatigue, and presented with significant pericardial effusion. No true tamponade physiology. Vital signs stable. ? Thyroid peroxidase antibodies positive. Thyroid ultrasound showed small heterogeneous thyroid which may represent thyroiditis, calcified left thyroid nodule measuring less than 1 cm. Additional follow-up was not suggested. ? Troponins peaked at 1.47, down trended to 0.80. EKG without acute ischemic changes. ? Cardiology consulted, s/p pericardiocentesis 05/27/2024 with nearly 2 L serosanguineous output. Patient tolerated procedure well. Pericardial drain had an additional 150 mL. Drain was subsequently removed by Dr. Hoyt. ? Treated with IV levothyroxine 125, then 150 mcg, oral liothyronine (T3) 25 mcg daily. Transitioned to oral levothyroxine 125 mcg. ? Continue colchicine per cardiology 0.6 mg for suspected pericarditis. ? Patient requiring 2 L nasal cannula due to myxedema, saturating 84% on room air at rest. ? Advised to follow-up with cardiology within 2 weeks. #Hyperlipidemia ? LDL 161, likely related to hypothyroidism. ? Start atorvastatin 80 mg nightly. #Allergic rhinitis ? Continue home regimen. Total time spent on discharge: 32 minutes on chart review, counseling, documentation, and direct care with patient. Exam Data for Last 24 hours Vital signs and Labs for Last 24 Hours: Temp Pulse Resp BP Pulse Ox O2 Del Method O2 Flow Rate 98.2 F 63 18 124/70 92 L Nasal Cannula 2 05/30/24 11:45 05/30/24 11:45 05/30/24 11:45 05/30/24 11:45 05/30/24 11:45 05/30/24 11:45 05/30/24 11:45 Laboratory Results - last 24 hr 05/30/24 05:38: WBC 6.9, RBC 3.97 L, Hgb 13.0, Hct 41.2, MCV 103.8 H, MCH 32.7 H , MCHC 31.6 L, RDW 13.3, Plt Count 168, MPV 11.2 H, Neut % (Auto) 77.2, Lymph % (Auto) 14.1, [place]cculloch % (Auto) 5.5, Eos % (Auto) 2.3, Baso % (Auto) 0.6, Neut # (Auto) 5.4, Lymph # (Auto) 1.0, [place]och # (Auto) 0.4, Eos # (Auto) 0.2, Baso # (Auto) 0.0, Sodium 141, Potassium 3.8, Chloride 93 L, Carbon Dioxide 40 H, Anion Gap 11.8, BUN 14, Creatinine 1.00, Estimated Creat Clear 88, Estimated GFR 56 L, Est GFR ( Amer) 68, Glucose 100, Calcium 9.1, Triglycerides 174 H, Cholesterol 267 H, LDL Cholesterol Direct 158.03 H, VLDL Cholesterol 35, HDL Cholesterol 46, Cholesterol/HDL Ratio 5.8 H, TSH 45.60 H D, Free T4 0.22 L I & O for Last 24 hours: Intake & Output 05/27/24 05/28/24 05/29/24 05/30/24 23:59 23:59 23:59 23:59 Intake Total 780 / 780 910 / 940 745 / 865 360 / 360 Output Total 1350 / 1350 990 / 990 0 / 0 0 / 0 Balance -570 / -570 -80 / -50 745 / 865 360 / 360 Weight 114.124 kg 112 kg 93.894 kg 94 kg Microbiology Reports for the Last 24 Hours: Microbiology 05/27/24 Unknown Pericardial Fluid Gram Stain - Final 05/27/24 Unknown Pericardial Fluid Body Fluid Culture - Preliminary NO GROWTH AFTER 24 HOURS Constitutional Constitutional: no acute distress *Routine HEENT Exam Head: Present normocephalic Eye: Present EOMI and PERRL ENT: Present mucous membranes moist *Routine Neck Exam Neck: Present supple; Absent lymphadenopathy *Routine Respiratory Exam Respiratory: Present CTA bilaterally *Routine Cardiovascular Exam Cardiovascular: Present RRR *Routine Abdominal Exam Abdominal: Present soft and normoactive bowel sounds; Absent tenderness *Routine Extremities Exam Extremities: Present edema; Absent cyanosis or clubbing *Routine Skin Exam Skin: Present warm; Absent rash *Routine Neurological Exam Neurological: Present alert and oriented X3 Results Data Completed and Pending Labs on day of discharge: Labs from last 24 hours 05/30/24 05:38 WBC 6.9 RBC 3.97 L Hgb 13.0 Hct 41.2 MCV 103.8 H MCH 32.7 H MCHC 31.6 L RDW 13.3 Plt Count 168 MPV 11.2 H Neut % (Auto) 77.2 Lymph % (Auto) 14.1 [place]ulloch % (Auto) 5.5 Eos % (Auto) 2.3 Baso % (Auto) 0.6 Neut # (Auto) 5.4 Lymph # (Auto) 1.0 [place]och # (Auto) 0.4 Eos # (Auto) 0.2 Baso # (Auto) 0.0 Sodium 141 Potassium 3.8 Chloride 93 L Carbon Dioxide 40 H Anion Gap 11.8 BUN 14 Creatinine 1.00 Estimated Creat Clear 88 Estimated GFR 56 L Est GFR ( Amer) 68 Glucose 100 Calcium 9.1 Triglycerides 174 H Cholesterol 267 H LDL Cholesterol Direct 158.03 H VLDL Cholesterol 35 HDL Cholesterol 46 Cholesterol/HDL Ratio 5.8 H TSH 45.60 H D Free T4 0.22 L Preliminary micro results at discharge 05/27/24 Unknown Body Fluid Culture - Preliminary Pericardial Fluid NO GROWTH AFTER 24 HOURS DS: Diagnosis Discharge Diagnosis (1) Myxedema: Status: Acute Code(s): E03.9 - Hypothyroidism, unspecified Meds Home Medications and Allergies Home Medications ?Medication ?Instructions ?Recorded ?Confirmed ?Type ascorbic acid (vitamin C) 500 mg 500 mg PO DAILY 05/26/24 05/26/24 History tablet (Vitamin C) cholecalciferol (vitamin D3) 10 10 mcg PO DAILY 05/26/24 05/26/24 History mcg (400 unit) tablet (Vitamin D3) atorvastatin 40 mg tablet 80 mg (2 x 40 mg) PO HS 30 days 05/30/24 Rx #60 tabs colchicine 0.6 mg tablet (Colcrys) 0.6 mg PO DAILY 30 days #30 tabs 05/30/24 Rx levothyroxine 150 mcg capsule 150 mcg PO DAILY #30 caps 05/30/24 Rx New Prescriptions to Start Prescriptions: Shaq Rodriguez colchicine [Colcrys] Shaq Baker levothyroxine Shaq Baker Allergies Allergy/AdvReac Type Severity Reaction Status Date / Time Penicillins Allergy Unknown Verified 05/26/24 01:43 allergy reaction tetanus and diphtheria Allergy Unknown Verified 05/26/24 01:43 toxoids allergy reaction Discharge Plan Disposition Patient Disposition: Home, Self-Care Condition: Fair Discharge Order Discharge Orders: Discharge Order (Routine); Ordered 05/30/24 Ordered By: Shaq Baker Follow up Plan Follow up with: Warren Narvaez PA [Physician Insurance Risk Analyst] - 06/07/24 (please call for appointment) Provider,Rebeca, [Primary Care Provider] - 06/07/24 Prescriptions/Medication Reconciliation: New levothyroxine 150 mcg capsule 150 mcg PO DAILY Qty: 30 0RF atorvastatin 40 mg Tablet 80 mg PO HS 30 Days Qty: 60 0RF colchicine [Colcrys] 0.6 mg Tablet 0.6 mg PO DAILY 30 Days Qty: 30 0RF Continued ascorbic acid (vitamin C) [Vitamin C] 500 mg Tablet 500 mg PO DAILY cholecalciferol (vitamin D3) [Vitamin D3] 10 mcg (400 unit) Tablet 10 mcg PO DAILY Problem Reconciliation Problems Reviewed?: Yes Patient Discharge Instructions Patient Instructions: Heart-Healthy Diet, DI for Cardiac Tamponade, DI for High Blood Pressure Print Language: Maltese Providers Primary Care Provider: Provider,Referral Admit Provider: Shaq Baker Attending Provider: Shaq Baker
--- NOTE | 2024-05-30 12:36 | PC.NURSE ---
Pt RA O2 sat was 84% at rest. Pt put on 2L NC, after a minute her O2 was up to 93%.
[2024-05-30 14:54] LABS: Vitamin B12 950 pg/mL (239-931)
[2024-05-31 13:28] LABS: Glucose, Body Fluid 106 mg/dL (.); LD, Body Fluid 224 IU/L (.); Protein, Body Fluid 6.5 g/dL (.)
--- NOTE | 2024-06-01 10:46 | SW/DCPLANNER ---
Spoke with patient on the phone. Patient stated that she is doing well. Patient stated that her oxygen tube makes her nauseous and she has been taking it out when she is sitting down but when she is up moving it around she wears it. Patient stated that she is aware of her upcoming appointments. Patient stated that they were able to get her new medicine picked up. Patient stated that she has no concerns or questions at this time. Trisatn Holbrook
[2024-06-01 17:10] LABS: Thyroid Stimulating Immunoglob 0.11 IU/L (0.00-0.55)
[2024-06-03 20:12] LABS: Rheumatoid Factor IGA < 7 U (<7)
[2024-06-11 12:37] LABS: APTT 36.2 sec (.); Anti-Cardiolipin Antibody IgG <10 GPL (.); Anti-Cardiolipin Antibody IgM <10 MPL (.); Beta-2 Glycoprotein I Ab, IgA <10 SAU (.); Beta-2 Glycoprotein I Ab, IgG <10 SGU (.); Beta-2 Glycoprotein I Ab, IgM <10 SMU (.); Hexagonal Phase Phospholipid 8 sec (.); INR 1.1 ratio (.); Prothrombin Time 11.8 sec (.); Thrombin Time 21.8 sec (.)
== END 2024-05-30 14:16 | disposition home or self-care (01) | DRG 280 ==
LOC: ER 01:54 → ICU 16:14 → 2ND 05-27 09:35 → ICU 05-27 17:53 → 2ND 05-28 17:17
PROVIDERS: Internal Medicine; Nurse Practitioner Family; Physician Assistant; Admitting Provider Student in an Organized Health Care Education/Training Program; Emergency Provider Emergency Medicine; Visit Provider Student in an Organized Health Care Education/Training Program
PROC: 0W9D3ZZ Drainage of Pericardial Cavity, Percutaneous Approach (ICD-10-PCS; CPT 33016; principal; 2024-05-27 16:00)
DX: I31.39 Other pericardial effusion (noninflammatory) (principal); J96.01 Acute respiratory failure with hypoxia; I21.A1 Myocardial infarction type 2; E78.5 Hyperlipidemia, unspecified; I16.0 Hypertensive urgency; R73.9 Hyperglycemia, unspecified; R00.1 Bradycardia, unspecified; J30.9 Allergic rhinitis, unspecified; I45.10 Unspecified right bundle-branch block; E66.9 Obesity, unspecified; Z68.38 Body mass index [BMI] 38.0-38.9, adult; E03.9 Hypothyroidism, unspecified; E04.1 Nontoxic single thyroid nodule; Z79.899 Other long term (current) drug therapy; Z88.0 Allergy status to penicillin; Z88.7 Allergy status to serum and vaccine; Z87.891 Personal history of nicotine dependence
CPT/HCPCS: 33016; 36415; 71046; 71275; 76536; 80048; 80053; 80061; 82607; 82803; 82945; 83036; 83615; 83735; 83880; 84155; 84439; 84443; 84445; 84481; 84484; 85025; 85378; 85597; 85598; 85610; 85613; 85651; 85670; 85730; 86140; 86146; 86147; 86376; 86803; 87070; 87081; 87116; 87186; 87205; 87206; 87389; 87633; 89051; 93005; 93306; 93308; 94618; 97163; 99152; 99153; 99285; C1725; J1644; J1650; J1940; J2250; J3010; Q9967

== ENCOUNTER 2024-06-02 11:07 | Outpatient (CLI) | payer SELFPAY ==
[2024-06-02 12:37] LABS: Free T4 (Free Thyroxine) 0.48 ng/dl (0.78-2.19)
== END 2024-06-02 23:59 | disposition home or self-care (01) ==
LOC: LAB 11:09
PROVIDERS: PCP Family Medicine; Visit Provider Physician Assistant
DX: E03.9 Hypothyroidism, unspecified (principal); I10 Essential (primary) hypertension
CPT/HCPCS: 36415; 84439; 84443

== ENCOUNTER 2024-06-14 07:50 | Outpatient (CLI) | payer SELFPAY ==
--- NOTE | 2024-06-14 08:00 | CA_ITS ---
APPROVED REPORT EXAM: Limited 2D Echocardiogram [employer] Car Stewardess: Digna HernandezKAMRON perry Ht: 5 ft 8 in Wt: 213lbs BSA: 2.10 BP: 153/72 mmHg Indications: S/P PERICARDIOCENTESIS ON 05/27/24,F/U PERICARDIAL EFFUSION,HTN,EX-SMOKER M-Mode Dimensions RVDd 2.86 cm (0.9-2.6) LA Diam 4.76 cm (1.9-4.0) LVDd 3.80 cm (3.5-5.7) LVDs 2.55 cm (3.5-5.7) IVSd 1.30 cm (0.6-1.1) PWd 1.65 cm (0.6-1.1) EF (Teich) 62.30% FS 32.90% EDV (Teich) 62.00 mL TAPSE 2.17 (<1.7) ESV (Teich) 23.40 mL Tricuspid Valve TR P. Velocity 227.00 cm/s RAP Estimate 10.00 mmHg RVSP 30.70 mmHg Other Information Study Quality: Fair Conclusion This is a limited TTE to evaluate for pericardial effusion. Limited windows are obtained. There is a [id number]-[id number] sized, circumferential pericardial effusion present. Posteriorly, the pericardial effusion pocket is large, measuring 3.0 cm in largest dimension. No evidence of chamber collapse. No clear evidence of tamponade. The IVC is not well visualized in this study. Compared to recent study from 05/28/2024, the pericardial effusion size has increased. Serial limited TTEs and clinical correlation are recommended. Electronically signed by : Danelle Ruiz MD 06/14/2024 12:10:37
== END 2024-06-14 23:59 | disposition home or self-care (01) ==
LOC: RT 07:53
PROVIDERS: PCP Family Medicine; Visit Provider Physician Assistant
DX: I31.39 Other pericardial effusion (noninflammatory) (principal); Z87.891 Personal history of nicotine dependence
CPT/HCPCS: 93308

== ENCOUNTER 2024-07-01 11:24 | Outpatient (CLI) | payer SELFPAY ==
--- NOTE | 2024-07-01 11:15 | CA_ITS ---
APPROVED REPORT EXAM: Comprehensive 2D, Doppler, and color-flow Echocardiogram Utility Aircrewman: Jossie Trevizo RDCS Ht: 5 ft 8 in Wt: 194lbs BSA: 2.02 BP: 135/63 mmHg Indications: F/U PERICARDIAL EFF M-Mode Dimensions RVDd 3.06 cm (0.9-2.6) LA Diam 4.70 cm (1.9-4.0) LVDd 4.21 cm (3.5-5.7) LVDs 2.25 cm (3.5-5.7) IVSd 1.39 cm (0.6-1.1) PWd 1.20 cm (0.6-1.1) EF (Teich) 78.40% FS 46.60% EDV (Teich) 79.00 mL TAPSE 2.51 (<1.7) ESV (Teich) 17.10 mL Other Information Study Quality: Fair Conclusion This is a limited TTE to evaluate for pericardial effusion. Limited windows were obtained. There is a large sized, circumferential pericardial effusion present. The largest pocket is noted posteriorly and along the RV free wall measuring approximately 35-40 mm in largest dimension. The results of evidence of partial RA collapse during systole, as well as partial RV invagination during diastole. Findings are suggestive of possible early tamponade physiology. Clinical correlation is required. The above findings were relayed to the cardiology team and the patient at the time of her cardiology clinic visit on the same day of the echo acquisition. Electronically signed by : Danelle Ruiz MD 07/01/2024 12:18:17
== END 2024-07-01 23:59 | disposition home or self-care (01) ==
LOC: RT 11:25
PROVIDERS: PCP Family Medicine; Visit Provider Physician Assistant
DX: I31.39 Other pericardial effusion (noninflammatory) (principal); Z87.891 Personal history of nicotine dependence
CPT/HCPCS: 93308

== ENCOUNTER 2024-07-01 12:21 | Inpatient (IN) | payer SELFPAY ==
[2024-07-01] VITALS (28 sets, daily range): BP systolic 120–180; BP diastolic 57–105; PULSE 58–89; RESP 10–22; TEMP 36.4–36.8; O2SAT 77–100; BMI 29.5; BMI 29.2
--- NOTE | 2024-07-01 12:40 | XR_ITS ---
FINAL REPORT TECHNIQUE: Single view chest CLINICAL HISTORY: erik jimmy COMPARISON: 05/26/2024 FINDINGS: A single view of the chest was obtained. The heart is moderately enlarged. The lungs are underinflated but clear. There is no pneumothorax. IMPRESSION: No acute cardiopulmonary process. Reviewed, Interpreted and Dictated by Abilio Jonas MD Transcribed by Cesia Peck Authenticated and . [facility]
--- NOTE | 2024-07-01 12:50 | HMH.PHAINT1 ---
Pharmacy Intervention Comments: MEDICATION RECONCILIATION COMPLETED ON PATIENT USING EXTERNAL FILL HISTORY FROM PHARMACY, LIST FROM CARDIOLOGY OFFICE, AND DISCHARGE SUMMARY FROM PREVIOUS ADMISSION. -PRERNA POP, PHARMD
--- NOTE | 2024-07-01 12:54 | ECG_ITS ---
APPROVED REPORT Exam: Resting ECG HR:62 bpm ECG Measurements Heart Rate 62 AXES OH 185 P 68 QRSd 121 QRS -3 QT 446 T 60 QTc 451 Conclusion Sinus rhythm, low voltage QRS Electronically signed by : JUAN R SANTANA, 07/02/2024 07:10:54
--- NOTE | 2024-07-01 12:57 | ED_ITS ---
Discharge Plan Disposition Patient Disposition: Admitted Chief Complaint: Shortness of Breath/Dyspnea Prescriptions Prescriptions: No Action ascorbic acid (vitamin C) [Vitamin C] 500 mg Tablet 500 mg PO DAILY cholecalciferol (vitamin D3) [Vitamin D3] 10 mcg (400 unit) Tablet 10 mcg PO DAILY levothyroxine 150 mcg capsule 150 mcg PO DAILY Qty: 30 0RF atorvastatin 40 mg Tablet 80 mg PO HS 30 Days Qty: 60 0RF colchicine [Colcrys] 0.6 mg Tablet 0.6 mg PO DAILY 30 Days Qty: 30 0RF Clinical Impressions Clinical Impression: Pericardial effusion Print Language Print Language: Portuguese Discharge ED Provider: Maulik Butler HPI General Chief Complaint: Shortness of Breath/Dyspnea Stated Complaint: fluid on heart, sent by Warren Narvaez Time Seen by Provider: 07/01/24 12:26 Mode of Arrival: Ambulatory Source of Information: Patient Description of Symptoms (Recalled from ER Triage Doc. by RN): Patient comes in from PCP with fluid on her heart. Patient denies any chest pain or shortness of breath. History of Present Illness HPI narrative: Please note that above description of symptoms, in this electronic medical record under categorization of recalled from ER triage doctor by RN are reflective of an initial nursing assessment, however, is not reflective of my full history and physical exam that was personally taken and clarified. Consequentially, this preceding description of symptoms, which may include the patient's categorized chief complaint in the EMR, do not reflect my personal clinical impression, and the ultimate description of history of present illness and patient stated complaints should be deferred to this section of the note. Unless stated otherwise or congruent with this section of the note, additional signs, symptoms, or incongruence should be interpreted as inaccurate with my clinical impression. Related Data Home Medications ?Medication ?Instructions ?Recorded ?Confirmed ascorbic acid (vitamin C) 500 mg 500 mg PO DAILY 05/26/24 07/01/24 tablet (Vitamin C) cholecalciferol (vitamin D3) 10 10 mcg PO DAILY 05/26/24 07/01/24 mcg (400 unit) tablet (Vitamin D3) Previous Rx's ?Medication ?Instructions ?Recorded atorvastatin 40 mg tablet 80 mg (2 x 40 mg) PO HS 30 days 05/30/24 #60 tabs colchicine 0.6 mg tablet (Colcrys) 0.6 mg PO DAILY 30 days #30 tabs 05/30/24 levothyroxine 150 mcg capsule 150 mcg PO DAILY #30 caps 05/30/24 Allergies Allergy/AdvReac Type Severity Reaction Status Date / Time Penicillins Allergy Unknown Verified 07/01/24 10:11 allergy reaction tetanus and diphtheria Allergy Unknown Verified 07/01/24 10:11 toxoids allergy reaction [facility] Disclaimer: The information contained in this section may have been updated after the patient was seen, as this information can be updated by other users. Medical History Pericardial effusion HTN (hypertension) Chest pain Hypertensive emergency Family History Grandmother Family history of myocardial infarction Father Dementia Mother Diabetes Breast cancer Social History Smoking Status: Former smoker tobacco type: cigarettes packs per day: 1 alcohol intake: never current occupational status: other Travel in the last 8 weeks?: None household members: spouse housing: house marital status: number of children: 1 number of grandchildren: 2 Have you lived/traveled outside US in past 30 days?: No Contact w/someone who lives/traveled outside US past 30 days?: No Exposure to someone with infectious disease in past 14 days?: No Do you have a fever (greater than 100.4 F or 38 C)?: No Have you tested positive for COVID-19?: No Exposed to someone with COVID-19 in past 14 days?: No Do you have a sore throat?: No Do you have a cough?: No Do you have any weakness?: No Do you have any diarrhea?: No Are you experiencing any unusual bleeding?: No Do you have any muscle aches/pain?: No Do you have any abdominal pain?: No Are you experiencing loss of taste or smell?: No Other Medical History Have you received the Flu Vaccine for this season: No Have you received the Pneumonia Vaccine: No ROS Obtained: Yes All systems reviewed & no additional complaints except as documented Physical Exam General General appearance: alert Head Head exam: atraumatic and normocephalic Eye Eye exam: Present normal appearance, PERRL and EOMI Neck Neck exam: Present normal inspection, full ROM and trachea midline Chest Chest inspection: Present normal inspection and symmetric chest wall rise Respiratory Respiratory exam: Absent respiratory distress, wheezes, stridor, accessory muscle use or prolonged expiratory phase Cardiovascular Cardiovascular exam: Present regular rate, normal rhythm and other (Pulses equal symmetric in upper and lower extremities) Abdominal Exam Abdominal exam: Present soft; Absent distention, tenderness or pulsatile mass Extremities Exam Extremities exam: Present edema Neurological Exam Neurological exam: Present alert, oriented X3 and CN II-XII intact; Absent motor sensory deficit Skin Skin exam: Present warm and dry; Absent diaphoresis or erythema HEART Score HEART Score HEART Score assessment performed?: Yes HEART Score: 5 Procedures Limited Ultrasound Indication:: Ultrasound-guided line placement Indication: - Difficult IV access, numerous unsuccessful sticks Identified structures: - Left upper extremity veins Location/access site: - Left upper extremity median vein Vessel patency: - Patent Direct visualization? - Yes Impression: Successful placement of 20-gauge catheter in left upper extremity Images were not saved to permanent archive The study was technically adequate CPT Codes: Venipuncture: 79395-69 Age <3 yo: 22278-86 Age >3yo: 95388-25 Central line <5 yo: 80543-74 Central line >5 yo: 18420-89 This study was performed by me, and I personally interpreted all images/videos. Based on my clinical judgement, these images were adequate and did not necessitate further imaging Views:: Limited cardiac ultrasound Indication: Effusion, evaluate for tamponade, Identified cardiac views: -Cardiac parasternal long axis -Cardiac parasternal short axis Findings: -Cardiac activity present -Gross wall motion normal -Pericardial effusion present, no tamponade physiology. No RV diastolic collapse -Right heart strain absent Impression: - Effusion without tamponade physiology Images were saved to permanent archive The study was technically adequate CPT: 43330 This study was performed by tx, and I personally interpreted all images/videos. Based on my clinical judgement, these images were adequate and did not necessitate further imaging Critical Care Critical Care Time Critical Care Time: Yes (cardiac) Attestation: On 07/01/24, the high probability of a clinically significant, sudden or life threatening deterioration of the following system(s) required my full and direct attention, intervention and personal management. The time I documented below is in addition to time spent performing reported procedures but includes the following listed in this critical care notation. Total Time Total Critical Care Time: 45 Medical Decision Making Medical Records Medical records reviewed: Yes I reviewed the patient's medical records. [place] Inquiry Pt receiving controlled substance: No [place] was queried for this patient: No Vital Signs Vital Signs: 07/01/24 12:26 07/01/24 12:36 07/01/24 13:00 Temperature 98.3 F Temperature Source Tympanic Pulse Rate 71 62 Pulse Rate [Left] 71 Respiratory Rate 16 10 L 21 Blood Pressure 120/105 H 157/63 H Blood Pressure [Right Arm] 147/66 H Blood Pressure Mean [Right Arm] 93 Blood Pressure Source [Right Arm] Automatic Cuff 02 Sat by Pulse Oximetry 93 L 88 L 77 L Oxygen Delivery Method Room Air 07/01/24 13:30 07/01/24 14:00 07/01/24 14:45 Temperature Temperature Source Pulse Rate 64 58 L 61 Pulse Rate [Left] Respiratory Rate 20 15 19 Blood Pressure 161/61 H 152/62 H 162/63 H Blood Pressure [Right Arm] Blood Pressure Mean [Right Arm] Blood Pressure Source [Right Arm] 02 Sat by Pulse Oximetry 92 L 92 L 92 L Oxygen Delivery Method Lab Data Labs: Lab Results 07/01/24 13:15: WBC 5.9, RBC 3.42 L, Hgb 10.8 L, Hct 34.5 L, MCV 100.9 H, MCH 31.6 H, MCHC 31.3 L, RDW 12.2, Plt Count 208, MPV 11.2 H, Neut % (Auto) 66.1, Lymph % (Auto) 22.3, [place] % (Auto) 8.7, Eos % (Auto) 2.2, Baso % (Auto) 0.5, Neut # (Auto) 3.9, Lymph # (Auto) 1.3, [place] # (Auto) 0.5, Eos # (Auto) 0.1, Baso # (Auto) 0.0, PT 11.4, INR 1.02, APTT 27.1, Sodium 140, Potassium 4.2, Chloride 102, Carbon Dioxide 35 H, Anion Gap 7.2, BUN 18 H, Creatinine 0.70, Estimated Creat Clear 82, Estimated GFR 85, Est GFR ( Amer) 103, Glucose 91, Uric Acid 4.6, Calcium 9.8, Total Bilirubin 0.7, AST 31, ALT 33, Alkaline Phosphatase 69, Troponin I < 0.01, NT-Pro-B Natriuret Pep 683 H, Total Protein 7.0, Albumin 4.4, Globulin 2.6, Albumin/Globulin Ratio 1.7, TSH 1.77, Thyroxine (T4) 11.8 H 07/01/24 13:15 07/01/24 13:15 Response Orders (Tests/Meds): ED MEDICATIONS Generic Name Dose Route Start Last Admin Trade Name Freq PRN Reason Stop Dose Admin Diazepam 5 mg 07/01/24 14:00 Diazepam 5mg Tablet PO 07/02/24 02:01 ONCE PRN Anxiety Fentanyl Citrate 50 mcg 07/01/24 14:00 Fentanyl 100mcg/2ml Vial IV 07/02/24 02:01 Q3MINP PRN Sedation Fentanyl Citrate 25 mcg 07/01/24 14:00 Fentanyl 100mcg/2ml Vial IV 07/02/24 02:01 Q3MINP PRN Sedation Flumazenil 0.2 mg 07/01/24 14:00 Flumazenil 0.1mg/Ml 5ml Vial IV 07/02/24 02:01 NEEDED PRN Sedation Hydralazine HCl 20 mg 07/01/24 14:00 Hydralazine 20mg/Ml Vial IV 07/01/24 18:01 ONCE PRN sbp>160 Adenosine 180 mg/ Sodium 90 mls @ 475.184 mls/hr 07/01/24 14:00 Chloride IV 07/01/24 18:01 ONCE PRN fractional flow reserve 180 MCG/KG/MIN Adenosine 90 mg/ Sodium 90 mls @ 950.368 mls/hr 07/01/24 14:00 Chloride IV 07/01/24 18:01 ONCE PRN fractional flow reserve 180 MCG/KG/MIN Sodium Chloride 1,000 mls @ 25 mls/hr 07/01/24 14:00 Sod Chloride 0.9% 500ml Bag IV 07/02/24 14:01 .Q25H CRISELDA Lorazepam 1 mg 07/01/24 14:00 Lorazepam 2mg/Ml Vial IV 07/02/24 02:01 ONCE PRN Anxiety Midazolam HCl 1 mg 07/01/24 14:00 Midazolam 2mg/2ml Vial IV 07/02/24 02:01 Q3MINP PRN Sedation Midazolam HCl 1 mg 07/01/24 14:00 Midazolam Hcl 1mg/Ml 5ml Vial IV 07/02/24 02:01 Q3MINP PRN Sedation Naloxone HCl 0.4 mg 07/01/24 14:00 Naloxone 0.4mg/Ml Vial IV 07/02/24 02:01 Q5MINP PRN Decreased Respirations Ondansetron HCl 4 mg 07/01/24 14:00 Ondansetron 4mg/2ml Vial IV 07/02/24 02:01 NEEDED PRN Nausea Promethazine HCl 25 mg 07/01/24 14:00 Promethazine Hcl 25mg/Ml 1ml Vial IV 07/02/24 02:01 NEEDED PRN Nausea And Vomiting Sodium Chloride 10 ml 07/01/24 14:00 Sodium Chloride 0.9% 10ml Vial IV 07/31/24 13:59 NEEDED PRN to Dilute Lorazepam inj Discontinued Medications Generic Name Dose Route Start Last Admin Trade Name Freq PRN Reason Stop Dose Admin Diphenhydramine HCl 50 mg 07/01/24 14:00 Diphenhydramine 50mg/Ml Vial IV 07/01/24 14:01 ONCE ONE Heparin Sodium/Sodium Chloride 3,000 unit 07/01/24 14:00 Heparin 1,000 Units/500ml Ns (Biomedical Electronics Technician) IV 07/01/24 14:01 ONCE ONE Lidocaine HCl 10 ml 07/01/24 14:00 Lidocaine 1% 10ml Mdv IJ 07/01/24 14:01 ONCE ONE Lidocaine HCl 10 ml 07/01/24 14:00 Lidocaine 1% 5ml Pf Vial IJ 07/01/24 14:01 ONCE ONE Morphine Sulfate 4 mg 07/01/24 14:00 Morphine 4mg/Ml Syringe IV 07/01/24 14:01 ONCE ONE Sodium Chloride 25 ml 07/01/24 14:00 Sodium Chloride 0.9% 25ml Bag IV 07/01/24 14:01 ONCE ONE ORDERS Category Date Time Status Cardiology Consult [Consult to Cardiology] [CONS] Cons 07/01/24 13:38 Active Routine Cardiology Consult [Consult to Cardiology] [CONS] Cons 07/01/24 15:00 Active Routine CA US Guide Pericardiocentesis Routine Exams 07/01/24 14:56 Completed CA echo limited Routine Exams 07/01/24 14:55 Completed POCUS Point of Care (ER Only) Stat Exams 07/01/24 12:40 Completed POCUS Point of Care (ER Only) Stat Exams 07/01/24 14:05 Completed XR chest portable Stat Exams 07/01/24 12:40 Completed Complete Blood Count Auto Diff AMLAB Lab 07/02/24 06:00 Ordered Complete Blood Count Auto Diff Stat Lab 07/01/24 13:15 Completed Comprehensive Metabolic Panel AMLAB Lab 07/02/24 06:00 Ordered Comprehensive Metabolic Panel Stat Lab 07/01/24 13:15 Completed Magnesium AMLAB Lab 07/02/24 06:00 Ordered NT Pro Brain Natriuretic Pep. Stat Lab 07/01/24 13:15 Completed PT INR [Prothrombin Time INR] Stat Lab 07/01/24 13:15 Completed PTT [Activated Partial Thrombo Time] Stat Lab 07/01/24 13:15 Completed T4 (Thyroxine) Stat Lab 07/01/24 13:15 Completed TSH [Thyroid Stimulating Hormone] Stat Lab 07/01/24 13:15 Completed TSH [Thyroid Stimulating Hormone] Stat Lab 07/01/24 13:50 Received Troponin I Q3H Lab 07/01/24 15:45 Ordered Troponin I Q3H Lab 07/01/24 18:45 Ordered Troponin I Stat Lab 07/01/24 13:15 Completed Uric Acid Stat Lab 07/01/24 13:15 Completed MDM Narrative Medical Decision Narrative: 63-year-old female presenting with concern for worsening pericardial effusion by cardiology clinic. I received a call from cardiology clinic stating that patient recently admitted for myxedema coma, had pericardiocentesis, has been outpatient therapy, the patient's pericardial effusion has doubled over the past few weeks. Sent for further evaluation. Patient states she is currently asymptomatic, feels much better after recent hospitalization, thyroid medications, has had plenty of energy, no chest pain, shortness of breath, PND, orthopnea, or any other concerns. States that her lower extremity swelling seems to be getting better, but seems pretty standard for her. History was obtained via conversation with patient and cardiology provider. On arrival, patient hemodynamically stable, alert, oriented x4, appropriate, GCS 15, moving all extremities spontaneously, pupils equal and reactive to light. Full physical exam performed and significant for clinically well-appearing female no acute distress. Lungs are clear, cardiac exam with quiet heart sounds, but easily audible. No evidence of murmurs, gallops, rubs. She does have pretibial nonpitting lower extremity edema bilaterally, but pulses equal and symmetric in upper and lower extremities. Mentating appropriately, neurologically intact. Differential includes inflammatory effusion, hemorrhagic effusion, uremia, inflammatory, autoimmune, tamponade, dissection, among others. Difficult IV access. Ultrasound-guidance was used to place 20-gauge IV catheter in left median vein. Patient placed on continuous cardiac monitoring and continuous pulse ox with initial blood pressure 147/66, heart rate 71, saturation 93 on room air. Independent interpretation of EKG shows low voltage QRS with sinus rhythm 62 bpm SC 185, QRS 121, QTc 451. No acute ischemic change, appears to be leftward leaning axis. Workup independently interpreted and significant for nonactionable CBC, patient's hemoglobin is newly 11 down from 13 just a about a month prior. Nonactionable chemistry. On independent interpretation of imaging, patient has large cardiac silhouette consistent with effusion. No obvious pleural effusions. See radiology read for full review of final results. Cardiology was consulted and case was discussed. Patient to be admitted likely for pericardiocentesis. Bedside [id number] ultrasound performed and patient does not have tamponade physiology on bedside echo. Hospitalist was contacted and case was discussed at length, patient be admitted. Pharmacy Technician Inpatient disclaimer Much of this encounter note is an electronic facility service manager spoken language to printed text. Electronic facility service manager of the spoken language may permit errors. Although I have reviewed the note, some errors may still exist.
[2024-07-01 13:28] LABS: Basophils % 0.5 % (0.1-2.0); Eosinophils # 0.1 Kmm3 (0.0-0.4); Eosinophils % 2.2 % (0.1-12.0); Hematocrit 34.5 % (37.0-47.0); Hemoglobin 10.8 g/dL (12.2-16.2); Lymphocytes # 1.3 K/mm3 (0.7-4.5); Lymphocytes % 22.3 % (10-50); Mean Corpuscular HGB Conc 31.3 g/dL (31.8-35.4); Mean Corpuscular Hemoglobin 31.6 pg (27.0-31.2); Mean Corpuscular Volume 100.9 fl (81-99); Mean Platelet Volume 11.2 fl (7.4-10.4); Monocytes # 0.5 K/mm3 (0.1-1.0); Monocytes % 8.7 % (1.7-9.3); Neutrophils # 3.9 K/mm3 (1.8-7.8); Neutrophils % 66.1 % (37.0-80.0); Nucleated Red Blood Cells # 0 10^3/uL; Nucleated Red Blood Cells % 0 %; Platelet Count 208 K/mm3 (142-424); Red Blood Count 3.42 M/mm3 (4.20-5.40); Red Cell Distribution Width 12.2 % (11.5-17.5); Red Cell Distribution Width-SD 45.4 fL; White Blood Count 5.9 K/mm3 (4.8-10.8)
[2024-07-01 13:33] LABS: Alanine Aminotransferase 33 U/L (12-78); Albumin Level 4.4 g/dl (3.5-5.0); Albumin/Globulin Ratio 1.7 (1.1-1.8); Alkaline Phosphatase 69 U/L (38-126); Anion Gap 7.2 mEq/L (5-15); Aspartate Amino Transferase 31 U/L (14-36); Bilirubin,Total 0.7 mg/dl (0.2-1.3); Blood Urea Nitrogen 18 mg/dl (7-17); Calcium 9.8 mg/dl (8.4-10.2); Carbon Dioxide 35 mmol/L (22.0-30.0); Chloride 102 mmol/L (98-107); Creatinine Clearance Estimated 82 mL/min (50-200); Estimated Glomerular Filt Rate 85 ml/min (>60); GFR (African American) 103 ML/MIN (>60); Globulin 2.6 g/dL (1.3-3.2); Glucose 91 mg/dl (74-100); Potassium 4.2 mmoL/L (3.5-5.1); Sodium 140 mmol/L (136-145)
[2024-07-01 13:34] LABS: Uric Acid 4.6 mg/dl (2.5-6.2)
[2024-07-01 13:42] LABS: NT Pro Brain Natriuretic Pep. 683 pg/mL (0-125)
[2024-07-01 13:47] LABS: Troponin I < 0.01 ng/ml (0.00-0.034)
[2024-07-01 13:50] LABS: Activated Partial Thrombo Time 27.1 seconds (22.8-30.6); INR 1.02 (0.9-1.1); Prothrombin Time 11.4 seconds (10.1-12.5)
[2024-07-01 13:51] LABS: T4 (Thyroxine) 11.8 ug/dl (5.53-11.0)
--- NOTE | 2024-07-01 13:55 | IR_ITS ---
APPROVED REPORT Patient Location: Inpatient PROCEDURES Therapeutic pericardiocentesis Placement of pericardial drain into the pericardial space INDICATION Pericardial effusion, Cardiac tamponade Informed consent was obtained prior to the procedure. COMPLICATIONS NONE Estimated Blood Loss: LESS THAN 10 ML TECHNIQUE Patient was taken to the Construction Administrative Assistant and sterilely prepped. Sedation was given 1% lidocaine was used anesthetize the xiphoid area. Under fluoroscopic guidance a pericardial needle was inserted into the pericardial space and a wire was advanced. The tract was dilated and a pigtail catheter was advanced. 700 cc of clear yellow blood-tinged fluid was removed. Echocardiogram performed at the end of the procedure demonstrated resolution of the pericardial effusion. The pigtail catheter was secured into place with 0 silk and the patient was transferred the postop putting in stable condition IMPRESSION Successful therapeutic pericardiocentesis draining 700 cc of yellow blood-tinged fluid Successful placement of pericardial drain into the pericardial space PLAN 1. Gunpowder feed overnight 2. Repeat echo in the morning 3. Supportive care Electronically signed by : Carlos Hoyt MD 07/01/2024 17:48:23
[2024-07-01 14:04] LABS: Thyroid Stimulating Hormone 1.77 uIU/mL (0.465-4.68)
--- NOTE | 2024-07-01 14:36 | EXP.CARD.CON ---
History of Present Illness History of Present Illness Consult date: 07/01/24 Requesting physician: Maulik Butler Chief complaint: Pericardial effusion History of present illness: This is a 63-year-old white female with past medical history of pericardial effusion, hypothyroidism with recent maxedema coma, hypertension and hyperlipidemia who is being admitted for reoccurring pericardial effusion. Echo today shows a large sized, circumferential pericardial effusion present with partial RA collapse during systole as well as partial RV invagination during diastole. Findings are suggestive of possible early tamponade. Patient was sent to emergency department for admission and pericardiocentesis. Patient is resting comfortably in the emergency department on evaluation. She denies chest pain or shortness of breath. Reports overall she is feeling better since starting thyroid medication. Labs as follow: WBC 5.9, hemoglobin 10.8, platelets 208, sodium 140, potassium 4.2, creatinine 0.7, troponin negative, proBNP 683. TSH is 1.77 and T4 11.8. Chest x-ray is negative for acute cardiopulmonary process. Is awaiting pericardiocentesis. [facility] Disclaimer: The information contained in this section may have been updated after the patient was seen, as this information can be updated by other users. Medical History Pericardial effusion HTN (hypertension) Chest pain Hypertensive emergency Family History Grandmother Family history of myocardial infarction Father Dementia Mother Diabetes Breast cancer Social History Smoking Status: Former smoker tobacco type: cigarettes packs per day: 1 alcohol intake: never current occupational status: other Travel in the last 8 weeks?: None household members: spouse housing: house marital status: number of children: 1 number of grandchildren: 2 Have you lived/traveled outside US in past 30 days?: No Contact w/someone who lives/traveled outside US past 30 days?: No Exposure to someone with infectious disease in past 14 days?: No Do you have a fever (greater than 100.4 F or 38 C)?: No Have you tested positive for COVID-19?: No Exposed to someone with COVID-19 in past 14 days?: No Do you have a sore throat?: No Do you have a cough?: No Do you have any weakness?: No Do you have any diarrhea?: No Are you experiencing any unusual bleeding?: No Do you have any muscle aches/pain?: No Do you have any abdominal pain?: No Are you experiencing loss of taste or smell?: No Review of Systems Review of Systems Review of systems:: pertinent systems reviewed and negative unless documented below Exam Data for Last 24 hours Vital signs and Labs for Last 24 Hours: Temp Pulse Resp BP Pulse Ox O2 Del Method 98.3 F 58 L 15 152/62 H 92 L Room Air 07/01/24 12:26 07/01/24 14:00 07/01/24 14:00 07/01/24 14:00 07/01/24 14:00 07/01/24 12:26 Laboratory Results - last 24 hr 07/01/24 13:15: WBC 5.9, RBC 3.42 L, Hgb 10.8 L, Hct 34.5 L, MCV 100.9 H, MCH 31.6 H, MCHC 31.3 L, RDW 12.2, Plt Count 208, MPV 11.2 H, Neut % (Auto) 66.1, Lymph % (Auto) 22.3, [place] % (Auto) 8.7, Eos % (Auto) 2.2, Baso % (Auto) 0.5, Neut # (Auto) 3.9, Lymph # (Auto) 1.3, [place] # (Auto) 0.5, Eos # (Auto) 0.1, Baso # (Auto) 0.0, PT 11.4, INR 1.02, APTT 27.1, Sodium 140, Potassium 4.2, Chloride 102, Carbon Dioxide 35 H, Anion Gap 7.2, BUN 18 H, Creatinine 0.70, Estimated Creat Clear 82, Estimated GFR 85, Est GFR ( Amer) 103, Glucose 91, Uric Acid 4.6, Calcium 9.8, Total Bilirubin 0.7, AST 31, ALT 33, Alkaline Phosphatase 69, Troponin I < 0.01, NT-Pro-B Natriuret Pep 683 H, Total Protein 7.0, Albumin 4.4, Globulin 2.6, Albumin/Globulin Ratio 1.7, TSH 1.77, Thyroxine (T4) 11.8 H I & O for Last 24 hours: Intake & Output 06/28/24 06/29/24 06/30/24 07/01/24 23:59 23:59 23:59 23:59 Weight 194 lb Constitutional Constitutional: no acute distress *Routine Respiratory Exam Respiratory: Present CTA bilaterally and symmetric chest movement *Routine Cardiovascular Exam Cardiovascular: Present RRR, Normal S1 and Normal S2 *Routine Abdominal Exam Abdominal: Present soft and normoactive bowel sounds; Absent tenderness *Routine Extremities Exam Extremities: Present full ROM and normal capillary refill; Absent edema *Routine Skin Exam Skin: Present intact, dry and warm Detailed Neck Exam: Thyroids Thyroid: Absent bruit Meds Home Medications and Allergies Home Medications ?Medication ?Instructions ?Recorded ?Confirmed ?Type ascorbic acid (vitamin C) 500 mg 500 mg PO DAILY 05/26/24 07/01/24 History tablet (Vitamin C) cholecalciferol (vitamin D3) 10 10 mcg PO DAILY 05/26/24 07/01/24 History mcg (400 unit) tablet (Vitamin D3) atorvastatin 40 mg tablet 80 mg (2 x 40 mg) PO HS 30 days 05/30/24 07/01/24 Rx #60 tabs colchicine 0.6 mg tablet (Colcrys) 0.6 mg PO DAILY 30 days #30 tabs 05/30/24 07/01/24 Rx levothyroxine 150 mcg capsule 150 mcg PO DAILY #30 caps 05/30/24 07/01/24 Rx New Prescriptions to Start Prescriptions: Allergies Allergy/AdvReac Type Severity Reaction Status Date / Time Penicillins Allergy Unknown Verified 07/01/24 10:11 allergy reaction tetanus and diphtheria Allergy Unknown Verified 07/01/24 10:11 toxoids allergy reaction Assessment and Plan *Assessment and plan (1) Pericardial effusion: Status: Acute Category: Medical Code(s): I31.39 - Other pericardial effusion (noninflammatory) Plan Pericardial effusion Worsened on echo today with signs of early tamponade Patient stable and directed to emergency department to await pericardiocentesis Pericardiocentesis pending Labs stable Will need repeat limited echo in the morning after drain placement
--- NOTE | 2024-07-01 14:49 | PC.NURSE ---
Dr Butler s/w Dr Cheatham
--- NOTE | 2024-07-01 14:55 | CA_ITS ---
APPROVED REPORT EXAM: Limited 2D Echocardiogram Tattoo Technician: Digna Hernandez RVT Ht: 5 ft 8 in Wt: 194lbs BSA: 2.02 BP: 136/63 mmHg Indications: PERICARDIOCENTESIS, PERICARIDAL EFFUSION Other Information Study Quality: Fair Conclusion This is a limited TTE post pericardiocentesis. Limited windows are obtained. There is a trivial anterior pericardial effusion present. There is a large pocket of pericardial effusion that is persistently present posteriorly. The previously visualized chamber collapse is no longer seen on this TTE. Serial TTE's are suggested in the setting of persistent pericardial effusion. Clinical correlation is recommended. Electronically signed by : Danelle Ruiz MD 07/01/2024 20:45:40
[2024-07-01 16:17] LABS: Troponin I < 0.01 ng/ml (0.00-0.034)
[2024-07-01] MEDS: HEPARIN 1,000 UNITS/500ML NS (CATH LAB) 3000 UNIT IV (17:25)
[2024-07-01] MEDS: 0.9 % SODIUM CHLORIDE 500 ML 25 ML IV (17:25)
[2024-07-01] MEDS: LIDOCAINE 1% 10ML MDV 10 ML IJ (17:25)
[2024-07-01] MEDS: FENTANYL 100MCG/2ML VIAL 50 MCG IV (17:26)
[2024-07-01] MEDS: MIDAZOLAM HCL 1MG/ML 5ML VIAL 1 MG IV (17:26)
--- NOTE | 2024-07-01 18:05 | PC.NURSE ---
pt arrived to floor from cardiac cath lab manager via stretcher to room 219
--- NOTE | 2024-07-01 19:45 | PC.NURSE ---
Luna Max PARTRIDGE FARMER to bedside and aware of pts output from pericardial drain.
[2024-07-01 20:06] LABS: Troponin I < 0.01 ng/ml (0.00-0.034)
--- NOTE | 2024-07-01 21:00 | PC.NURSE ---
[address] Hoyt. Made aware of pts output from pericardial drain. (375ml at shift change and approx 200ml in drainage bag at time of phone call.)
--- NOTE | 2024-07-01 21:27 | P.HP_ITS ---
<Statement entered by Alexx Cheatham MD - 07/01/24 22:01> Rounded on patient with nurse practitioner. Personally examined and interviewed patient. Agree with exam findings and care plan as documented. History of Present Illness *Admission Date: 07/01/24 *Reason for visit:: Pericardial effusion *History of present illness: This is a 63-year-old female with past medical history of hypothyroidism, recent myxedema coma, hyperlipidemia who presents emergency department today with for concerns of irregular echocardiogram. She recently had max edema, with pericardial effusion requiring pericardiocentesis. Today she had follow-up for pericardial effusion with repeat echo that showed continued large size circumferential pericardial effusion with partial RA collapse. Findings consistent with early tamponade. Despite the symptoms, on presentation the emergency department she was resting comfortably without distress. She denies chest pain or shortness of breath. on prior hospitalization was found to have significant hypothyroidism/maxipeme, was started on levothyroxine. States that she feels substantially better since starting this. She underwent pericardiocentesis with cardiology. Drain was placed. Upon arrival to the floor she was in stable condition. Wearing 2 L nasal cannula for comfort. In no distress. No muffled heart sounds noted. Pericardial drain with serosanguineous fluid. Patient is otherwise stable for [facility] Disclaimer: The information contained in this section may have been updated after the patient was seen, as this information can be updated by other users. Medical History Pericardial effusion HTN (hypertension) Chest pain Hypertensive emergency Family History Grandmother Family history of myocardial infarction Father Dementia Mother Diabetes Breast cancer Social History Smoking Status: Former smoker tobacco type: cigarettes packs per day: 1 alcohol intake: never current occupational status: other Travel in the last 8 weeks?: None household members: spouse housing: house marital status: number of children: 1 number of grandchildren: 2 Have you lived/traveled outside [place] in past 30 days?: No Contact w/someone who lives/traveled outside [place] past 30 days?: No Exposure to someone with infectious disease in past 14 days?: No Do you have a fever (greater than 100.4 F or 38 C)?: No Have you tested positive for COVID-19?: No Exposed to someone with COVID-19 in past 14 days?: No Do you have a sore throat?: No Do you have a cough?: No Do you have any weakness?: No Do you have any diarrhea?: No Are you experiencing any unusual bleeding?: No Do you have any muscle aches/pain?: No Do you have any abdominal pain?: No Are you experiencing loss of taste or smell?: No Other Medical History Have you received the Flu Vaccine for this season: No Have you received the Pneumonia Vaccine: No Review of Systems Review of Systems Review of systems:: pertinent systems reviewed and negative unless documented below Review of systems (narrative): Negative except for HPI Meds Home Medications and Allergies Home Medications ?Medication ?Instructions ?Recorded ?Confirmed ?Type ascorbic acid (vitamin C) 500 mg 500 mg PO DAILY 05/26/24 07/01/24 History tablet (Vitamin C) cholecalciferol (vitamin D3) 10 10 mcg PO DAILY 05/26/24 07/01/24 History mcg (400 unit) tablet (Vitamin D3) atorvastatin 40 mg tablet 80 mg (2 x 40 mg) PO HS 30 days 05/30/24 07/01/24 Rx #60 tabs colchicine 0.6 mg tablet (Colcrys) 0.6 mg PO DAILY 30 days #30 tabs 05/30/24 07/01/24 Rx levothyroxine 150 mcg capsule 150 mcg PO DAILY #30 caps 05/30/24 07/01/24 Rx New Prescriptions to Start Prescriptions: Allergies Allergy/AdvReac Type Severity Reaction Status Date / Time Penicillins Allergy Unknown Verified 07/01/24 10:11 allergy reaction tetanus and diphtheria Allergy Unknown Verified 07/01/24 10:11 toxoids allergy reaction Exam Data for Last 24 hours Vital signs and Labs for Last 24 Hours: Temp Pulse Resp BP Pulse Ox O2 Del Method O2 Flow Rate 97.6 F 77 19 138/74 99 Nasal Cannula 2.5 07/01/24 19:25 07/01/24 20:00 07/01/24 19:25 07/01/24 19:25 07/01/24 19:25 07/01/24 21:00 07/01/24 21:00 Laboratory Results - last 24 hr 07/01/24 13:15: WBC 5.9, RBC 3.42 L, Hgb 10.8 L, Hct 34.5 L, MCV 100.9 H, MCH 31.6 H, MCHC 31.3 L, RDW 12.2, Plt Count 208, MPV 11.2 H, Neut % (Auto) 66.1, Lymph % (Auto) 22.3, [place] % (Auto) 8.7, Eos % (Auto) 2.2, Baso % (Auto) 0.5, Neut # (Auto) 3.9, Lymph # (Auto) 1.3, [place] # (Auto) 0.5, Eos # (Auto) 0.1, Baso # (Auto) 0.0, PT 11.4, INR 1.02, APTT 27.1, Sodium 140, Potassium 4.2, Chloride 102, Carbon Dioxide 35 H, Anion Gap 7.2, BUN 18 H, Creatinine 0.70, Estimated Creat Clear 82, Estimated GFR 85, Est GFR ( Amer) 103, Glucose 91, Uric Acid 4.6, Calcium 9.8, Total Bilirubin 0.7, AST 31, ALT 33, Alkaline Phosphatase 69, Troponin I < 0.01, NT-Pro-B Natriuret Pep 683 H, Total Protein 7.0, Albumin 4.4, Globulin 2.6, Albumin/Globulin Ratio 1.7, TSH 1.77, Thyroxine (T4) 11.8 H 07/01/24 13:50: TSH 1.70 07/01/24 15:40: Troponin I < 0.01 07/01/24 17:24: Troponin I < 0.01 I & O for Last 24 hours: Intake & Output 06/28/24 06/29/24 06/30/24 07/01/24 23:59 23:59 23:59 23:59 Output Total 375 / 375 Balance -375 / -375 Weight 87.231 kg Constitutional Constitutional: no acute distress *Routine HEENT Exam Head: Present normocephalic Eye: Present EOMI and PERRL ENT: Present mucous membranes moist *Routine Neck Exam Neck: Present supple; Absent lymphadenopathy *Routine Respiratory Exam Respiratory: Present CTA bilaterally *Routine Cardiovascular Exam Cardiovascular: Present RRR, Normal S1 and Normal S2 Comments: Pericardial drain in place with serosanguineous fluid. Draining to gravity *Routine Abdominal Exam Abdominal: Present soft and normoactive bowel sounds; Absent tenderness *Routine Rectal Exam Rectal:: deferred *Routine Genitalia Exam Genitalia:: deferred *Routine Extremities Exam Extremities: Absent cyanosis, clubbing or edema *Routine Skin Exam Skin: Present warm; Absent rash *Routine Neurological Exam Neurological: Present alert and oriented X3 Assessment and Plan *Assessment and plan (1) Pericardial effusion: Status: Acute Category: Medical Code(s): I31.39 - Other pericardial effusion (noninflammatory) (2) Hypothyroid: Status: Acute Qualifiers: Hypothyroidism type: unspecified Qualified Code(s): E03.9 - Hypothyroidism, unspecified Category: Medical Code(s): E03.9 - Hypothyroidism, unspecified (3) Obesity: Status: Acute Qualifiers: Obesity type: due to excess calories Obesity classification: adult class 2 (BMI 35 - 39.9) Serious obesity comorbidity presence: unspecified whether serious comorbidity present Body mass index: BMI 38.0-38.9 Qualified Code(s): E66.812 - Obesity, class 2; E66.09 - Other obesity due to excess calories; Z68.38 - Body mass index [BMI] 38.0-38.9, adult Category: Medical Code(s): E66.9 - Obesity, unspecified (4) Hyperlipidemia: Status: Acute Category: Medical Code(s): E78.5 - Hyperlipidemia, unspecified Plan #Pericardial effusion Recurrent. Pericardial drain placed today with serosanguineous output. Continue to monitor drain output Monitor vital signs closely for tamponade physiology Cardiology on board, repair here recommendations Continue colchicine #Hypothyroidism Improved thyroid function. TSH on [birth year]27[birth year]1940 with downtrend now up to 1.7 Continue home levothyroxine #Hyperlipidemia Continue home statin
--- NOTE | 2024-07-01 22:33 | PC.NURSE ---
Notified Luna Max APRN of pts O2 dropping to 70% while asleep. After waking pt and instructing her to take a deep breaht, O2 sat increased to 100%.
[2024-07-02] VITALS (9 sets, daily range): BP systolic 119–151; BP diastolic 60–69; PULSE 74–95; RESP 13–22; TEMP 36.5–36.9; O2SAT 92–100; BMI 29.1
--- NOTE | 2024-07-02 00:01 | PC.NURSE ---
assessment unchanged at this time
--- NOTE | 2024-07-02 05:37 | PC.NURSE ---
Pt stated multiple times t/o the night that she didn't need to void. Pt attempted to void this morning and was able to get about 5 ml. 0505- pt bladder scanned. showed >713ml 0510- pt straight cath per Luna Max [employer] O[employer]. 900 ml clear, yellow urine out.
--- NOTE | 2024-07-02 05:54 | PC.NURSE ---
pt weaned to 1L NC
[2024-07-02 06:14] LABS: Basophils % 0.5 % (0.1-2.0); Eosinophils # 0.1 Kmm3 (0.0-0.4); Eosinophils % 1.8 % (0.1-12.0); Hematocrit 37.2 % (37.0-47.0); Hemoglobin 11.6 g/dL (12.2-16.2); Lymphocytes # 0.8 K/mm3 (0.7-4.5); Mean Corpuscular HGB Conc 31.2 g/dL (31.8-35.4); Mean Corpuscular Hemoglobin 31.5 pg (27.0-31.2); Mean Corpuscular Volume 101.1 fl (81-99); Mean Platelet Volume 11.3 fl (7.4-10.4); Monocytes # 0.5 K/mm3 (0.1-1.0); Monocytes % 6.5 % (1.7-9.3); Neutrophils # 6.2 K/mm3 (1.8-7.8); Neutrophils % 80.9 % (37.0-80.0); Nucleated Red Blood Cells # 0 10^3/uL; Nucleated Red Blood Cells % 0 %; Platelet Count 213 K/mm3 (142-424); Red Blood Count 3.68 M/mm3 (4.20-5.40); Red Cell Distribution Width-SD 45.1 fL; White Blood Count 7.7 K/mm3 (4.8-10.8)
[2024-07-02 06:21] LABS: Albumin Level 4.1 g/dl (3.5-5.0); Chloride 101 mmol/L (98-107)
[2024-07-02 06:22] LABS: Potassium 3.8 mmoL/L (3.5-5.1); Sodium 141 mmol/L (136-145)
[2024-07-02 06:24] LABS: Alanine Aminotransferase 32 U/L (12-78); Alkaline Phosphatase 61 U/L (38-126); Anion Gap 8.8 mEq/L (5-15); Aspartate Amino Transferase 29 U/L (14-36); Bilirubin,Total 0.5 mg/dl (0.2-1.3); Blood Urea Nitrogen 14 mg/dl (7-17); Carbon Dioxide 35 mmol/L (22.0-30.0); Creatinine Clearance Estimated 81 mL/min (50-200); Estimated Glomerular Filt Rate 85 ml/min (>60); GFR (African American) 103 ML/MIN (>60)
[2024-07-02 06:25] LABS: Albumin/Globulin Ratio 1.5 (1.1-1.8); Globulin 2.7 g/dL (1.3-3.2); Glucose 118 mg/dl (74-100); Magnesium 1.9 mg/dl (1.6-2.3); Total Protein,Serum 6.8 g/dl (6.3-8.2)
--- NOTE | 2024-07-02 07:00 | CA_ITS ---
APPROVED REPORT EXAM: Comprehensive 2D, Doppler, and color-flow Echocardiogram Nursing Project Coordinator: Jossie Trevizo RDCS Ht: 5 ft 8 in Wt: 194lbs BSA: 2.02 BP: 138/74 mmHg Indications: F/U PERICARDIOCENTESIS Other Information Study Quality: Fair Conclusion This is a limited TTE to evaluate for pericardial effusion post pericardiocentesis. Limited windows were obtained. There is a small to medium sized, localized pocket of pericardial effusion noted posteriorly. The pocket measures 1.0 cm in its largest dimension. The anterior, as well as the remaining pockets, are no longer visualized. No evidence of chamber collapse or tamponade on echo. Compared to recent TTE from 1 day prior on 07/01/2024, the size and location of pericardial effusion are significantly improved. Electronically signed by : Danelle Ruiz MD 07/02/2024 10:28:39
[2024-07-02] MEDS: ASCORBIC ACID 500MG TAB 500 MG PO (08:28)
[2024-07-02] MEDS: COLCHICINE 0.6MG TABLET 0.6 MG PO (08:28)
[2024-07-02] MEDS: LEVOTHYROXINE 150MCG (0.15MG)TAB 150 MCG PO (08:28)
--- NOTE | 2024-07-02 09:42 | EXP.ACUTE.PN ---
Subjective *Date: 07/02/24 *Time: 09:42 Medical Exam Vital signs and Labs for Last 24 Hours: Vital Signs Temp Pulse Pulse Resp BP BP Pulse Ox 07/02/24 09:00 07/02/24 08:00 98.4 F 07/02/24 08:00 79 18 126/69 97 07/02/24 07:29 81 97 07/02/24 07:24 07/02/24 06:00 95 H 22 119/60 99 07/02/24 05:00 07/02/24 04:00 92 H 07/02/24 04:00 97.7 F 85 20 125/62 100 07/02/24 03:00 07/02/24 02:00 07/02/24 02:00 79 13 151/66 H 92 L 07/02/24 01:00 07/02/24 00:55 80 18 142/63 H 99 07/02/24 00:00 82 07/02/24 00:00 97.9 F 07/01/24 23:55 79 18 130/65 99 07/01/24 23:00 07/01/24 22:55 75 19 139/63 99 07/01/24 21:55 80 18 126/57 L 98 07/01/24 21:00 07/01/24 20:55 78 17 137/68 100 07/01/24 20:25 79 18 134/62 97 07/01/24 20:00 07/01/24 20:00 77 07/01/24 19:55 82 17 141/70 H 99 07/01/24 19:25 97.6 F 84 19 138/74 99 07/01/24 19:00 80 18 141/71 H 94 L 07/01/24 19:00 07/01/24 19:00 80 18 141/71 H 94 L 07/01/24 18:45 81 20 134/100 H 98 07/01/24 18:30 79 18 153/75 H 97 07/01/24 18:25 79 18 153/75 H 97 07/01/24 18:13 97.9 F 89 19 152/86 H 94 L 07/01/24 18:10 81 20 138/102 H 92 L 07/01/24 18:10 81 92 L 07/01/24 17:55 77 18 166/82 H 96 07/01/24 17:50 71 17 180/76 H 96 07/01/24 17:45 73 18 158/77 H 96 07/01/24 17:40 83 18 163/80 H 95 07/01/24 16:01 64 22 155/67 H 91 L 07/01/24 15:57 98.1 F 66 18 163/72 H 07/01/24 15:30 64 16 163/72 H 94 L 07/01/24 15:01 65 20 172/69 H 93 L 07/01/24 14:45 61 19 162/63 H 92 L 07/01/24 14:00 58 L 15 152/62 H 92 L 07/01/24 13:30 64 20 161/61 H 92 L 07/01/24 13:00 62 21 157/63 H 77 L 07/01/24 12:36 71 10 L 120/105 H 88 L 07/01/24 12:26 98.3 F 71 16 147/66 H 93 L O2 Del Method O2 Flow Rate 07/02/24 09:00 Nasal Cannula 2 07/02/24 08:00 07/02/24 08:00 Nasal Cannula 2 07/02/24 07:29 Nasal Cannula 2 07/02/24 07:24 Nasal Cannula 07/02/24 06:00 Nasal Cannula 1 07/02/24 05:00 Nasal Cannula 1 07/02/24 04:00 07/02/24 04:00 Nasal Cannula 2 07/02/24 03:00 Nasal Cannula 2 07/02/24 02:00 Nasal Cannula 2 07/02/24 02:00 Nasal Cannula 2 07/02/24 01:00 Nasal Cannula 2 07/02/24 00:55 Nasal Cannula 2 07/02/24 00:00 07/02/24 00:00 07/01/24 23:55 Room Air 07/01/24 23:00 Nasal Cannula 2 07/01/24 22:55 Room Air 07/01/24 21:55 Nasal Cannula 2 07/01/24 21:00 Nasal Cannula 2.5 07/01/24 20:55 Nasal Cannula 2.5 07/01/24 20:25 Nasal Cannula 2 07/01/24 20:00 Nasal Cannula 2 07/01/24 20:00 07/01/24 19:55 Nasal Cannula 2 07/01/24 19:25 Nasal Cannula 2 07/01/24 19:00 Nasal Cannula 2 07/01/24 19:00 Nasal Cannula 2 07/01/24 19:00 Nasal Cannula 4 07/01/24 18:45 Nasal Cannula 2 07/01/24 18:30 Nasal Cannula 4 07/01/24 18:25 Nasal Cannula 2 07/01/24 18:13 Nasal Cannula 4 07/01/24 18:10 Nasal Cannula 2 07/01/24 18:10 Nasal Cannula 2 07/01/24 17:55 Nasal Cannula 4 07/01/24 17:50 Nasal Cannula 4 07/01/24 17:45 Nasal Cannula 4 07/01/24 17:40 Nasal Cannula 4 07/01/24 16:01 Room Air 07/01/24 15:57 Room Air 07/01/24 15:30 Room Air 07/01/24 15:01 Room Air 07/01/24 14:45 07/01/24 14:00 07/01/24 13:30 07/01/24 13:00 07/01/24 12:36 07/01/24 12:26 Room Air Intake and Output 07/01/24 07/02/24 07/02/24 23:59 07:59 15:59 Intake Total 240 / 720 480 / 720 Output Total 375 / 375 1050 / 1050 Balance -375 / -375 -810 / -330 480 / -330 Intake: Intake, Oral Amount 240 / 720 480 / 720 Output: Output, Urine Amount (Catheter) 900 / 900 Straight 900 / 900 Output, Drainage Amount 375 / 375 150 / 150 Medial Chest 375 / 375 150 / 150 Other: Weight 87.231 kg 87.231 kg Patient Weight 07/02/24 23:59 Weight 87.231 kg Laboratory Results - last 24 hr 07/01/24 13:15: WBC 5.9, RBC 3.42 L, Hgb 10.8 L, Hct 34.5 L, MCV 100.9 H, MCH 31.6 H, MCHC 31.3 L, RDW 12.2, Plt Count 208, MPV 11.2 H, Neut % (Auto) 66.1, Lymph % (Auto) 22.3, [place] % (Auto) 8.7, Eos % (Auto) 2.2, Baso % (Auto) 0.5, Neut # (Auto) 3.9, Lymph # (Auto) 1.3, [place] # (Auto) 0.5, Eos # (Auto) 0.1, Baso # (Auto) 0.0, PT 11.4, INR 1.02, APTT 27.1, Sodium 140, Potassium 4.2, Chloride 102, Carbon Dioxide 35 H, Anion Gap 7.2, BUN 18 H, Creatinine 0.70, Estimated Creat Clear 82, Estimated GFR 85, Est GFR ( Amer) 103, Glucose 91, Uric Acid 4.6, Calcium 9.8, Total Bilirubin 0.7, AST 31, ALT 33, Alkaline Phosphatase 69, Troponin I < 0.01, NT-Pro-B Natriuret Pep 683 H, Total Protein 7.0, Albumin 4.4, Globulin 2.6, Albumin/Globulin Ratio 1.7, TSH 1.77, Thyroxine (T4) 11.8 H 07/01/24 13:50: TSH 1.70 07/01/24 15:40: Troponin I < 0.01 07/01/24 17:24: Troponin I < 0.01 07/02/24 06:03: WBC 7.7 D, RBC 3.68 L, Hgb 11.6 L, Hct 37.2, MCV 101.1 H, MCH 31.5 H, MCHC 31.2 L, RDW 12.0, Plt Count 213, MPV 11.3 H, Neut % (Auto) 80.9 H, Lymph % (Auto) 10.0, [place] % (Auto) 6.5, Eos % (Auto) 1.8, Baso % (Auto) 0.5, Neut # (Auto) 6.2, Lymph # (Auto) 0.8, [place] # (Auto) 0.5, Eos # (Auto) 0.1, Baso # (Auto) 0.0, Sodium 141, Potassium 3.8, Chloride 101, Carbon Dioxide 35 H, Anion Gap 8.8, BUN 14, Creatinine 0.70, Estimated Creat Clear 81, Estimated GFR 85, Est GFR ( Amer) 103, Glucose 118 H D, Calcium 9.0, Magnesium 1.9, Total Bilirubin 0.5, AST 29, ALT 32, Alkaline Phosphatase 61, Total Protein 6.8, Albumin 4.1, Globulin 2.7, Albumin/Globulin Ratio 1.5 I & O for Labs for Last 24 Hours: Intake & Output 04/29/25 04/30/25 05/01/25 05/02/25 23:59 23:59 23:59 23:59 Intake Total 720 / 720 Output Total 375 / 375 1050 / 1050 Balance -375 / -375 -330 / -330 Weight 87.231 kg 87.231 kg
--- NOTE | 2024-07-02 11:22 | P.DS_ITS ---
General Admission date:: 07/01/24 Discharge date: 07/02/24 HPI HPI HPI: This is a 63-year-old female with past medical history of hypothyroidism, recent myxedema coma, hyperlipidemia who presents emergency department today with for concerns of irregular echocardiogram. She recently had max edema, with pericardial effusion requiring pericardiocentesis. Today she had follow-up for pericardial effusion with repeat echo that showed continued large size circumferential pericardial effusion with partial RA collapse. Findings consistent with early tamponade. Despite the symptoms, on presentation the emergency department she was resting comfortably without distress. She denies chest pain or shortness of breath. on prior hospitalization was found to have significant hypothyroidism/myxedema, was started on levothyroxine. States that she feels substantially better since starting this. She underwent pericardiocentesis with cardiology. Drain was placed. Upon arrival to the floor she was in stable condition. Wearing 2 L nasal cannula for comfort. In no distress. No muffled heart sounds noted. Pericardial drain with serosanguineous fluid. Patient is otherwise stable for Hospital Course Hospital Course Hospital Course: 63-year-old female with hypothyroid and previous pericardial effusion. Pre sented with dyspnea. Found to have recurrent pericardial effusion. Pericardial drain placed with over 750 cc of output. Doing better by morning. Drain removed with repeat limited echo showing no significant right heart collapse and improvement in effusion. Stable to discharge home with close outpatient follow- up. Problems addressed as follows: #Pericardial effusion Recurrent. Pericardial drain placed today with serosanguineous output. Had 700 cc of fluid removed. Patient tolerated procedure well, additional 100 cc of drainage over the night. Repeat limited echo shows small to moderate effusion which is decreased in size from day prior and no evidence of chamber collapse or tamponade. Drain removed. Stable to discharge home with close outpatient follow-up with cardiology. Continue colchicine. #Hypothyroidism Improved thyroid function. TSH on 4 04/27/1938 with downtrend now up to 1.7. Continue home levothyroxine 150 mcg daily #Hyperlipidemia: Continue home statin Exam Data for Last 24 hours Vital signs and Labs for Last 24 Hours: Temp Pulse Resp BP Pulse Ox O2 Del Method O2 Flow Rate 98.4 F 74 19 139/65 100 Nasal Cannula 2 07/02/24 08:00 07/02/24 10:07/02/24 10:00 07/02/24 10:07/02/24 10:00 07/02/24 10:00 07/02/24 10:00 Laboratory Results - last 24 hr 07/01/24 13:15: WBC 5.9, RBC 3.42 L, Hgb 10.8 L, Hct 34.5 L, MCV 100.9 H, MCH 31.6 H, MCHC 31.3 L, RDW 12.2, Plt Count 208, MPV 11.2 H, Neut % (Auto) 66.1, Lymph % (Auto) 22.3, [place] % (Auto) 8.7, Eos % (Auto) 2.2, Baso % (Auto) 0.5, Neut # (Auto) 3.9, Lymph # (Auto) 1.3, [place] # (Auto) 0.5, Eos # (Auto) 0.1, Baso # (Auto) 0.0, PT 11.4, INR 1.02, APTT 27.1, Sodium 140, Potassium 4.2, Chloride 102, Carbon Dioxide 35 H, Anion Gap 7.2, BUN 18 H, Creatinine 0.70, Estimated Creat Clear 82, Estimated GFR 85, Est GFR ( Amer) 103, Glucose 91, Uric Acid 4.6, Calcium 9.8, Total Bilirubin 0.7, AST 31, ALT 33, Alkaline Phosphatase 69, Troponin I < 0.01, NT-Pro-B Natriuret Pep 683 H, Total Protein 7.0, Albumin 4.4, Globulin 2.6, Albumin/Globulin Ratio 1.7, TSH 1.77, Thyroxine (T4) 11.8 H 07/01/24 13:50: TSH 1.70 07/01/24 15:40: Troponin I < 0.01 07/01/24 17:24: Troponin I < 0.01 07/02/24 06:03: WBC 7.7 D, RBC 3.68 L, Hgb 11.6 L, Hct 37.2, MCV 101.1 H, MCH 31.5 H, MCHC 31.2 L, RDW 12.0, Plt Count 213, MPV 11.3 H, Neut % (Auto) 80.9 H, Lymph % (Auto) 10.0, [place] % (Auto) 6.5, Eos % (Auto) 1.8, Baso % (Auto) 0.5, Neut # (Auto) 6.2, Lymph # (Auto) 0.8, [place] # (Auto) 0.5, Eos # (Auto) 0.1, Baso # (Auto) 0.0, Sodium 141, Potassium 3.8, Chloride 101, Carbon Dioxide 35 H, Anion Gap 8.8, BUN 14, Creatinine 0.70, Estimated Creat Clear 81, Estimated GFR 85, Est GFR ( Amer) 103, Glucose 118 H D, Calcium 9.0, Magnesium 1.9, Total Bilirubin 0.5, AST 29, ALT 32, Alkaline Phosphatase 61, Total Protein 6.8, Albumin 4.1, Globulin 2.7, Albumin/Globulin Ratio 1.5 I & O for Last 24 hours: Intake & Output 06/29/24 06/30/24 07/01/24 07/02/24 23:59 23:59 23:59 23:59 Intake Total 720 / 720 Output Total 375 / 375 1050 / 1050 Balance -375 / -375 -330 / -330 Weight 87.231 kg 87.231 kg Constitutional Constitutional: no acute distress *Routine HEENT Exam Head: Present normocephalic Eye: Present EOMI and PERRL ENT: Present mucous membranes moist *Routine Neck Exam Neck: Present supple; Absent lymphadenopathy *Routine Respiratory Exam Respiratory: Present CTA bilaterally *Routine Cardiovascular Exam Cardiovascular: Present RRR *Routine Abdominal Exam Abdominal: Present soft and normoactive bowel sounds; Absent tenderness *Routine Extremities Exam Extremities: Present edema; Absent cyanosis or clubbing *Routine Skin Exam Skin: Present warm; Absent rash *Routine Neurological Exam Neurological: Present alert and oriented X3 Results Data Completed and Pending Labs on day of discharge: Labs from last 24 hours 07/02/24 07/01/24 07/01/24 06:03 17:24 15:40 WBC 7.7 D RBC 3.68 L Hgb 11.6 L Hct 37.2 MCV 101.1 H MCH 31.5 H MCHC 31.2 L RDW 12.0 Plt Count 213 MPV 11.3 H Neut % (Auto) 80.9 H Lymph % (Auto) 10.0 [place] % (Auto) 6.5 Eos % (Auto) 1.8 Baso % (Auto) 0.5 Neut # (Auto) 6.2 Lymph # (Auto) 0.8 [place] # (Auto) 0.5 Eos # (Auto) 0.1 Baso # (Auto) 0.0 PT INR APTT Sodium 141 Potassium 3.8 Chloride 101 Carbon Dioxide 35 H Anion Gap 8.8 BUN 14 Creatinine 0.70 Estimated Creat Clear 81 Estimated GFR 85 Est GFR ( Amer) 103 Glucose 118 H D Uric Acid Calcium 9.0 Magnesium 1.9 Total Bilirubin 0.5 AST 29 ALT 32 Alkaline Phosphatase 61 Troponin I < 0.01 < 0.01 NT-Pro-B Natriuret Pep Total Protein 6.8 Albumin 4.1 Globulin 2.7 Albumin/Globulin Ratio 1.5 TSH Thyroxine (T4) 07/01/24 07/01/24 13:50 13:15 WBC 5.9 RBC 3.42 L Hgb 10.8 L Hct 34.5 L MCV 100.9 H MCH 31.6 H MCHC 31.3 L RDW 12.2 Plt Count 208 MPV 11.2 H Neut % (Auto) 66.1 Lymph % (Auto) 22.3 [place] % (Auto) 8.7 Eos % (Auto) 2.2 Baso % (Auto) 0.5 Neut # (Auto) 3.9 Lymph # (Auto) 1.3 [place] # (Auto) 0.5 Eos # (Auto) 0.1 Baso # (Auto) 0.0 PT 11.4 INR 1.02 APTT 27.1 Sodium 140 Potassium 4.2 Chloride 102 Carbon Dioxide 35 H Anion Gap 7.2 BUN 18 H Creatinine 0.70 Estimated Creat Clear 82 Estimated GFR 85 Est GFR ( Amer) 103 Glucose 91 Uric Acid 4.6 Calcium 9.8 Magnesium Total Bilirubin 0.7 AST 31 ALT 33 Alkaline Phosphatase 69 Troponin I < 0.01 NT-Pro-B Natriuret Pep 683 H Total Protein 7.0 Albumin 4.4 Globulin 2.6 Albumin/Globulin Ratio 1.7 TSH 1.70 1.77 Thyroxine (T4) 11.8 H DS: Diagnosis Discharge Diagnosis (1) Pericardial effusion: Status: Acute Code(s): I31.39 - Other pericardial effusion (noninflammatory) (2) Hypothyroid: Status: Acute Code(s): E03.9 - Hypothyroidism, unspecified Qualifiers: Hypothyroidism type: unspecified Qualified Code(s): E03.9 - Hypothyroidism, unspecified (3) Obesity: Status: Acute Code(s): E66.9 - Obesity, unspecified Qualifiers: Body mass index: BMI 38.0-38.9 Obesity classification: adult class 2 (BMI 35 - 39.9) Obesity type: due to excess calories Serious obesity comorbidity presence: unspecified whether serious comorbidity present Qualified Code(s): E66.812 - Obesity, class 2; E66.09 - Other obesity due to excess calories; Z68.38 - Body mass index [BMI] 38.0-38.9, adult (4) Hyperlipidemia: Status: Acute Code(s): E78.5 - Hyperlipidemia, unspecified Meds Home Medications and Allergies Home Medications ?Medication ?Instructions ?Recorded ?Confirmed ?Type ascorbic acid (vitamin C) 500 mg 500 mg PO DAILY 05/26/24 07/05/24 History tablet (Vitamin C) cholecalciferol (vitamin D3) 10 10 mcg PO DAILY 05/26/24 07/05/24 History mcg (400 unit) tablet (Vitamin D3) atorvastatin 40 mg tablet 80 mg (2 x 40 mg) PO HS 30 days 05/30/24 07/05/24 Rx #60 tabs colchicine 0.6 mg tablet (Colcrys) 0.6 mg PO DAILY 30 days #30 tabs 05/30/24 07/05/24 Rx levothyroxine 150 mcg capsule 150 mcg PO DAILY #30 caps 05/30/24 07/05/24 Rx New Prescriptions to Start Prescriptions: Allergies Allergy/AdvReac Type Severity Reaction Status Date / Time Penicillins Allergy Unknown Verified 07/05/24 13:46 allergy reaction tetanus and diphtheria Allergy Unknown Verified 07/05/24 13:46 toxoids allergy reaction Discharge Plan Disposition Patient Disposition: Home, Self-Care Condition: Fair Discharge Order Discharge Orders: Discharge Order (Routine); Ordered 07/02/24 Ordered By: Alexx Cheatham Follow up Plan Follow up with: Funmi Anderson APRN [Nurse Practitioner] - 07/05/24 1:30 pm (friday) Kandi Robbins [Primary Care Provider] - Enter time for follow up Prescriptions/Medication Reconciliation: Continued ascorbic acid (vitamin C) [Vitamin C] 500 mg Tablet 500 mg PO DAILY cholecalciferol (vitamin D3) [Vitamin D3] 10 mcg (400 unit) Tablet 10 mcg PO DAILY levothyroxine 150 mcg capsule 150 mcg PO DAILY Qty: 30 0RF atorvastatin 40 mg Tablet 80 mg PO HS 30 Days Qty: 60 0RF colchicine [Colcrys] 0.6 mg Tablet 0.6 mg PO DAILY 30 Days Qty: 30 0RF Problem Reconciliation Problems Reviewed?: Yes Patient Discharge Instructions ACTIVITY: Continue current activity DIET: continue same diet Patient Instructions: DI for Cardiac Tamponade, DI for Pericardiocentesis, DI for Surgical Site Infection Print Language: Prydeinig Providers Primary Care Provider: Kandi Robbins Admit Provider: Alexx Cheatham Attending Provider: Alexx Cheatham
--- NOTE | 2024-07-02 11:28 | PC.NURSE ---
Drain to mid chest removed @ bedside by Estrella Botello NP. Dressing applied. Site C/D/I. Denies SOA/ CP.
--- NOTE | 2024-07-02 11:28 | EXP.CARD.PN ---
Subjective Subjective Date: 07/02/24 Time: 08:00 Principal diagnosis: Pericardial effusion Interval history: Cardial drain placed yesterday with 700 mL of pericardial fluid removed. Drain was left in place over the evening and has drained about 100 mL. This morning patient is resting comfortably and denies pain or shortness of breath. Repeat limited echo shows a small to medium size localized pocket of pericardial effusion posteriorly. To recent TTE from 1 day prior the size and location of pericardial effusion has significantly improved. There is no evidence of chamber collapse or tamponade on echo. Exam Data for Last 24 hours Vital signs and Labs for Last 24 Hours: Temp Pulse Resp BP Pulse Ox O2 Del Method O2 Flow Rate 98.4 F 74 19 139/65 100 Nasal Cannula 2 07/02/24 08:00 07/02/24 10:00 07/02/24 10:00 07/02/24 10:00 07/02/24 10:00 07/02/24 10:00 07/02/24 10:00 Laboratory Results - last 24 hr 07/01/24 13:15: WBC 5.9, RBC 3.42 L, Hgb 10.8 L, Hct 34.5 L, MCV 100.9 H, MCH 31.6 H, MCHC 31.3 L, RDW 12.2, Plt Count 208, MPV 11.2 H, Neut % (Auto) 66.1, Lymph % (Auto) 22.3, [place] % (Auto) 8.7, Eos % (Auto) 2.2, Baso % (Auto) 0.5, Neut # (Auto) 3.9, Lymph # (Auto) 1.3, [place] # (Auto) 0.5, Eos # (Auto) 0.1, Baso # (Auto) 0.0, PT 11.4, INR 1.02, APTT 27.1, Sodium 140, Potassium 4.2, Chloride 102, Carbon Dioxide 35 H, Anion Gap 7.2, BUN 18 H, Creatinine 0.70, Estimated Creat Clear 82, Estimated GFR 85, Est GFR ( Amer) 103, Glucose 91, Uric Acid 4.6, Calcium 9.8, Total Bilirubin 0.7, AST 31, ALT 33, Alkaline Phosphatase 69, Troponin I < 0.01, NT-Pro-B Natriuret Pep 683 H, Total Protein 7.0, Albumin 4.4, Globulin 2.6, Albumin/Globulin Ratio 1.7, TSH 1.77, Thyroxine (T4) 11.8 H 07/01/24 13:50: TSH 1.70 07/01/24 15:40: Troponin I < 0.01 07/01/24 17:24: Troponin I < 0.01 07/02/24 06:03: WBC 7.7 D, RBC 3.68 L, Hgb 11.6 L, Hct 37.2, MCV 101.1 H, MCH 31.5 H, MCHC 31.2 L, RDW 12.0, Plt Count 213, MPV 11.3 H, Neut % (Auto) 80.9 H, Lymph % (Auto) 10.0, [place] % (Auto) 6.5, Eos % (Auto) 1.8, Baso % (Auto) 0.5, Neut # (Auto) 6.2, Lymph # (Auto) 0.8, [place] # (Auto) 0.5, Eos # (Auto) 0.1, Baso # (Auto) 0.0, Sodium 141, Potassium 3.8, Chloride 101, Carbon Dioxide 35 H, Anion Gap 8.8, BUN 14, Creatinine 0.70, Estimated Creat Clear 81, Estimated GFR 85, Est GFR ( Amer) 103, Glucose 118 H D, Calcium 9.0, Magnesium 1.9, Total Bilirubin 0.5, AST 29, ALT 32, Alkaline Phosphatase 61, Total Protein 6.8, Albumin 4.1, Globulin 2.7, Albumin/Globulin Ratio 1.5 I & O for Last 24 hours: Intake & Output 06/29/24 06/30/24 07/01/24 07/02/24 23:59 23:59 23:59 23:59 Intake Total 720 / 720 Output Total 375 / 375 1050 / 1050 Balance -375 / -375 -330 / -330 Weight 192 lb 5 oz 192 lb 4.983 oz Constitutional Constitutional: no acute distress *Routine Respiratory Exam Respiratory: Present CTA bilaterally and symmetric chest movement *Routine Cardiovascular Exam Cardiovascular: Present RRR, Normal S1 and Normal S2 *Routine Abdominal Exam Abdominal: Present soft and normoactive bowel sounds; Absent tenderness *Routine Extremities Exam Extremities: Present full ROM and normal capillary refill; Absent edema *Routine Skin Exam Skin: Present intact, dry and warm Detailed Neck Exam: Thyroids Thyroid: Absent bruit Progress Note: A&P Assessment and plan (1) Pericardial effusion: Status: Acute (2) Hypothyroid: Status: Acute (3) Obesity: Status: Acute (4) Hyperlipidemia: Status: Acute Assessment and Plan Assessment and Plan for All Diagnoses:: Pericardial effusion Worsened on echo today with signs of early tamponade Patient stable and directed to emergency department to await pericardiocentesis Pericardiocentesis pending Labs stable Will need repeat limited echo in the morning after drain placement 07/02/2024 update: Pericardial drain was placed and 700 mL of fluid removed. Patient tolerated procedure well and had an additional 100 mL of fluid output from drain throughout the evening. Repeat limited echo this morning shows a small to moderate pericardial effusion which is decreased in size from day prior and shows no evidence of chamber collapse over tamponade. Drain was removed without difficulty and patient tolerated well. Please see procedure note. Cardiac summary 07/02/2024: Patient is CV stable for discharge home. Please have patient follow-up in cardiology clinic on Friday or Friday with ANUJ Miller for reevaluation of pericardial effusion.
--- NOTE | 2024-07-05 11:12 | SW/DCPLANNER ---
Spoke with patient on the phone. Patient stated that she is feeling well just tired and itchy. Patient stated that she is aware of her upcoming appointment and that she is going to call tomorrow and schedule an appointment with her primary care provider. Patient stated that she was able to get her new medicine picked up. Patient stated that she has no concerns or questions at this time. Tristan Holbrook
== END 2024-07-02 15:10 | disposition home or self-care (01) | DRG 316 ==
LOC: ER 13:35 → 2ND 15:36
PROVIDERS: Internal Medicine; Admitting Provider Internal Medicine Adolescent Medicine; Emergency Provider Emergency Medicine; PCP Family Medicine; Visit Provider Internal Medicine Adolescent Medicine
PROC: 0W9D3ZZ Drainage of Pericardial Cavity, Percutaneous Approach (ICD-10-PCS; CPT 33016; principal; 2024-07-01 13:55)
DX: I30.9 Acute pericarditis, unspecified (principal); I31.4 Cardiac tamponade; E03.9 Hypothyroidism, unspecified; E66.812 Obesity, class 2; E78.5 Hyperlipidemia, unspecified; I10 Essential (primary) hypertension; Z87.891 Personal history of nicotine dependence; Z88.7 Allergy status to serum and vaccine; Z88.0 Allergy status to penicillin; Z79.899 Other long term (current) drug therapy; Z82.49 Family history of ischemic heart disease and other diseases of the circulatory system; Z68.29 Body mass index [BMI] 29.0-29.9, adult
CPT/HCPCS: 33016; 33017; 36415; 71045; 80053; 83735; 83880; 84436; 84443; 84484; 84550; 85025; 85610; 85730; 93005; 93308; 99152; 99153; 99291; C1725; J1644; J2250; J3010

== ENCOUNTER 2024-10-20 09:50 | Outpatient (CLI) | payer SELFPAY ==
[2024-10-20 14:15] LABS: Anion Gap 13.0 mEq/L (5-15); Blood Urea Nitrogen 16 mg/dl (7-17); Calcium 9.4 mg/dl (8.4-10.2); Carbon Dioxide 30 mmol/L (22.0-30.0); Chloride 103 mmol/L (98-107); Cholesterol 115 mg/dl (140-200); Creatinine,Serum 0.70 mg/dl (0.52-1.04); Estimated Glomerular Filt Rate 85 ml/min (>60); GFR (African American) 103 ML/MIN (>60); Glucose 81 mg/dl (74-100); HDL Cholesterol 36 mg/dl (40-60); Potassium 4.0 mmoL/L (3.5-5.1); Sodium 142 mmol/L (136-145); Triglycerides 108 mg/dl (30-150)
[2024-10-20 14:24] LABS: NT Pro Brain Natriuretic Pep. 1230 pg/mL (0-125)
[2024-10-20 14:29] LABS: Free T4 (Free Thyroxine) 1.79 ng/dl (0.78-2.19)
[2024-10-20 14:45] LABS: Thyroid Stimulating Hormone 0.10 uIU/mL (0.465-4.68)
== END 2024-10-20 23:59 | disposition home or self-care (01) ==
LOC: LAB.DROPOF 10-21 12:07
PROVIDERS: PCP Nurse Practitioner Family; Visit Provider Nurse Practitioner Family
DX: G47.33 Obstructive sleep apnea (adult) (pediatric) (principal); M10.9 Gout, unspecified; I10 Essential (primary) hypertension; E78.5 Hyperlipidemia, unspecified; E03.9 Hypothyroidism, unspecified; R60.0 Localized edema
CPT/HCPCS: 80048; 80061; 83880; 84439; 84443

== ENCOUNTER 2024-11-03 14:16 | Outpatient (CLI) | payer SELFPAY ==
[2024-11-03 19:14] LABS: Chloride 104 mmol/L (98-107); Potassium 3.6 mmoL/L (3.5-5.1); Sodium 141 mmol/L (136-145)
[2024-11-03 19:17] LABS: Anion Gap 10.6 mEq/L (5-15); Blood Urea Nitrogen 20 mg/dl (7-17); Carbon Dioxide 30 mmol/L (22.0-30.0); Creatinine,Serum 0.70 mg/dl (0.52-1.04); Estimated Glomerular Filt Rate 85 ml/min (>60); GFR (African American) 103 ML/MIN (>60)
[2024-11-03 19:18] LABS: Calcium 9.4 mg/dl (8.4-10.2); Glucose 113 mg/dl (74-100)
== END 2024-11-03 23:59 ==
LOC: LAB.DROPOF 11-05 09:19
PROVIDERS: PCP Nurse Practitioner Family; Visit Provider Nurse Practitioner Family
DX: I10 Essential (primary) hypertension (principal); R60.0 Localized edema
CPT/HCPCS: 80048

== ENCOUNTER 2024-11-17 14:19 | Outpatient (CLI) | payer SELFPAY ==
[2024-11-17 17:58] LABS: Free T4 (Free Thyroxine) 2.19 ng/dl (0.78-2.19)
[2024-11-17 18:11] LABS: Thyroid Stimulating Hormone 0.02 uIU/mL (0.465-4.68)
== END 2024-11-17 23:59 ==
LOC: LAB.DROPOF 11-18 10:30
PROVIDERS: PCP Nurse Practitioner Family; Visit Provider Nurse Practitioner Family
DX: G47.33 Obstructive sleep apnea (adult) (pediatric) (principal); E03.9 Hypothyroidism, unspecified
CPT/HCPCS: 84439; 84443